=== PATIENT | female | born 1960 | race Caucasian/White ===

== ENCOUNTER 2020-08-22 12:54 | Inpatient (IN) | payer OTHER, SELFPAY ==
[2020-08-22] MEDS ORDERED: Acetaminophen 325 MG TAB PO PRN (14:13)
[2020-08-22] MEDS ORDERED: Ondansetron ODT 4 MG TAB PO PRN (14:13)
[2020-08-22] MEDS ORDERED: Senokot S 8.6-50 MG TAB PO PRN (14:13)
[2020-08-22] MEDS ORDERED: Diltiazem 125 MG/25 ML ONE (14:22)
[2020-08-22 14:29] LABS: Actual Bicarbonate (HCO3a) 24.7 mEq/L (22-28); Analyzer IN Cardio ER; Base Excess (BEa) -1.6 mEq/L (-2.0 to +3.0); CO2 Tension 48.3 mmHg (35.0-45.0); Calcium, Ionized (arterial) 1.18 mmol/L (1.12-1.30); Carboxyhemoglobin (COHb) 2.6 gm% (0.0-3.0); pH, Arterial 7.33 (7.35-7.45)
[2020-08-22 14:30] LABS: ALV-art Gradient 82.065 mmHg (0-20); O2 Tension (PaO2), arterial 57.2 mmHg (> 80.0); Puncture Site LRA
[2020-08-22] MEDS ORDERED: Diltiazem HCl 125 MG, Admixture Fee 1 EACH in Sodium Chloride 0.9% 100 ML IVPB SCH (14:30)
[2020-08-22 14:35] LABS: Troponin I 0.173 ng/mL (< 0.028)
[2020-08-22] MEDS ORDERED: Dextrose 5% in Water 1,000 ML IV PRN (14:35)
[2020-08-22] MEDS ORDERED: Dextrose 50% Abboject 50 ML SYRINGE SLOW IVP PRN (14:35)
[2020-08-22 14:54] LABS: CKMB 1.6 ng/mL (0-6.6)
--- NOTE | 2020-08-22 15:08 | HP ---
CONSULTATIONS CALLED: Dr. Kenny, Cardiology. PRIMARY CARE PHYSICIAN: Dr. Whiteside. REASON FOR ADMISSION: UTI, sepsis, and atrial fibrillation. HISTORY OF PRESENT ILLNESS: This is a very pleasant 60-year-old morbidly obese female, who was transferred from [facility] Emergency Room today after she presented to the emergency room with concerns of UTI along with weakness and recurrent falls. According to the patient, the patient's symptomatology started 1 week back where she went to her primary care physician, who prescribed her some antibiotics which she does not remember the name, but unfortunately, she has been feeling more weak and almost fell twice at which point of time, her advised her to go to the emergency room, so presented to the ER today, and according to the patient, she had a temperature of 101.8 degrees Fahrenheit at home. Initial evaluation in the emergency room at [facility] showed evidence of UTI along with elevated heart rate eventually confirming atrial fibrillation with a rapid ventricular rate, which is new onset. The patient there in the emergency room was treated with IV Cardizem drip, initially with digoxin, but unfortunately her rate did not control, so eventually, the patient was sent over to [facility] for tertiary level of care and Cardiology review along with treatment for UTI. Basing on the records from [facility] ER, the patient was taking Bactrim and she only took one dose of the same. At my evaluation at bedside in the emergency room, the patient feels lethargic and weak, is moderately short of breath though she is on oxygen at 2 L, currently increased to 3 L and has a history of COPD for which the patient uses oxygen at home. In the emergency room, Dr. Arnold, the ER physician advised for a CTA to rule out any evidence of pulmonary embolism. COVID-19 testing evaluation was negative. No other complaints of chest pain, abdominal pain, nausea, vomiting, diaphoresis, blurring of vision, tingling, numbness, burning micturition, constipation, claudication, anxiety, depression, hematuria, hematochezia, cough, expectoration, syncope, seizures, PND, or orthopnea has been noted. PAST MEDICAL HISTORY: 1. Congestive heart failure with unknown ejection fraction. 2. Diabetes mellitus type 2. 3. History of pancreatic malignancy treated with chemotherapy, radiation therapy for more than 5 years. 4. COPD. SURGICAL HISTORY: Includes cholecystectomy, hernia repair, and hysterectomy. PSYCHIATRIC HISTORY: Includes history of depression. SOCIAL HISTORY: The patient denies tobacco, alcohol, or recreational drug abuse. MEDICATIONS: Medication update is unavailable at this point of time and awaiting official review. REVIEW OF SYSTEMS: Except as documented, all systems reviewed and negative. PHYSICAL EXAMINATION: GENERAL: This is a 60-year-old female, who is morbidly obese, lying in her hospital bed, feeling weak and lethargic. VITAL SIGNS: Has a blood pressure of 138/60 mmHg. Respiratory rate of 18 per minute, saturation of 92% on 3 L of oxygen. Has an airway, which is clear. HEENT: Atraumatic, normocephalic. NECK: Supple. No bruit. No lymphadenopathy. No thyromegaly. CVS: S1, S2. Irregular in nature with rapid ventricular rate. CHEST: Bilateral air entry present, but decreased with basal creps noted on auscultation. ABDOMEN: Soft, nontender. Bowel sounds are present. No organomegaly. EXTREMITIES: No cyanosis. 1+ edema noted. No icterus. No pallor. NEUROLOGIC: The patient is alert, oriented x3. No focal, motor, or sensory deficits noted. HEMATOLOGIC: No ecchymosis or petechiae. PSYCHIATRIC: History of depression. No suicidal ideations noted. SKIN: Intact, but slightly dry. DIAGNOSTIC STUDIES: WBC is 15.2, hemoglobin 13.5, hematocrit 44.1, platelets are 181. Sodium 135, potassium 4.0, chloride 96, carbon dioxide 26, BUN 30, creatinine 1.20, GFR is 46. Lactic acid is 1.7. AST 21, ALT 32, alkaline phosphatase is 108. Urinalysis has been reviewed. Wbc greater than 50, urine bacteria 3+. Influenza screen negative for A and B and COVID-19 testing negative. Currently pending tests are CT angiogram. Also, we will order an echocardiogram review. ASSESSMENT: 1. Suspected sepsis with atrial fibrillation and complicated urinary tract infection. We will start and continue the patient on Maxipime per protocol. We will follow urine cultures as well as blood culture and sensitivity evaluations as done at [facility] in [facility]. 2. Atrial fibrillation with rapid ventricular rate, which is new onset. At this point of time, Cardiology Services has been consulted and unfortunately, the patient did not respond to digoxin as well as Cardizem, so has been started on IV amiodarone for which the patient is being transitioned to CCU. We will also do an echocardiogram evaluation for further review. 3. Acute hypoxemic COPD exacerbation, which is moderate in nature, and I have started the patient on Solu-Medrol and DuoNeb nebulizations. 4. History of suspected congestive heart failure for which an echocardiogram will be done to review the same. 5. History of pancreatic cancer with chemoradiation therapy. Not sure what her followup review is with her primary oncologist. 6. Benign essential hypertension. 7. Diabetes mellitus type 2. I will start the patient on sliding scale insulin protocol with hypoglycemia precautions. 8. Morbid obesity. PLAN: Discussed in detail of the diagnosis, treatment, and followup with the patient. I expect the patient to be admitted to the hospitalist services for more than 2 midnights. We will start the patient on IV Maxipime for antibiotic coverage. Follow all cultures from [facility] diagnostic evaluations. We will do a CT angiogram to rule out pulmonary embolism; also, do an echocardiogram evaluation at this point of time. We will hold the patient's metformin because of contrast use for the next 48 hours and start the patient on sliding scale insulin protocol with hypoglycemia precautions. Advanced directives, full code. The patient's MPOA is her , Mr. Saravanan Dunbar, who can be reached at [phone]. The patient's condition is guarded. We will be admitting the patient to CCU at this point of time, and we will follow official consultation evaluation by Dr. Kenny, Cardiology. Job ID: [id number]
--- NOTE | 2020-08-22 15:12 | CT ---
EXAM: CT ANGIOGRAM CHEST WITH 3D RENDERIN08/22/20 HISTORY: Dyspnea. FINDINGS: There are fairly extensive bilateral interstitial, alveolar, and ground glass opacity changes through out both lungs which have an appearance that is certainly consistent with that of COVID pneumonia. Th ere is a somewhat mosaic appearance to the lungs as well which is nonspecific. There are scattered me diastinal and bilateral hilar lymph nodes up to 1.1 cm short axis in the right paratracheal region,1. 2 cm short axis in the left paratracheal region and smaller bilateral hilar nodes. Minimal lingular a telectasis. Bilateral pleural thickening and some pleural based chronic appearing changes. Small hiat al hernia. Evidence for probable hepatomegaly. Borderline sized spleen. No CT evidence for pulmonary embolism. IMPRESSION: No convincing evidence for acute cardiopulmonary embolism. Fairly extensive bilateral parenchymal changes which certainly could be consistent with bilateral COV ID pneumonia. Minimal mediastinal and hilar adenopathy. Other findings as above. POS: RRE
[2020-08-22 16:43] VITALS: BMI 37.8
[2020-08-22] MEDS ORDERED: Sodium Chloride 0.9% 1,000 ML IV SCH (18:00)
[2020-08-22 18:19] LABS: Troponin I 0.112 ng/mL (< 0.028)
[2020-08-22] MEDS: Metoprolol Tartrate 50 MG TAB PO SCH (19:48)
[2020-08-22] MEDS: Aspirin 81 mg Enteric Coated Tablet PO SCH (19:48)
[2020-08-22] MEDS: Famotidine 20 MG TAB PO SCH (19:48)
[2020-08-22] MEDS: HumaLOG 300 UNITS/3 ML VIAL SC PRN (20:00)
[2020-08-22] MEDS ORDERED: Digoxin 0.5 MG/2 ML AMP SLOW IVP SCH (20:15)
[2020-08-22] MEDS ORDERED: Metoprolol Tartrate 5 MG/5 ML VIAL IVP PRN ×2 (20:40→20:43)
[2020-08-22] MEDS: Enoxaparin Sodium 100 MG/ML SYRINGE SC SCH (20:57)
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
[2020-08-22] MEDS: Cefepime 1 GM in Sodium Chloride 0.9% 100 ML IVPB SCH (22:03)
[2020-08-22] MEDS: Amiodarone 450 MG, Admixture Fee 1 EACH in Dextrose 5% in Water 250 ML IVPB SCH (22:03)
[2020-08-22] MEDS: methylPREDNISolone Sod Succ 40 MG VIAL IVP SCH (23:30)
[2020-08-23 04:34] LABS: ALT (SGPT) 31 U/L (8-55); AST (SGOT) 28 U/L (5-34); Albumin 3.3 g/dL (3.4-4.8); Alkaline Phosphatase 110 U/L (40-110); Anion Gap 15 mmol/L (10-20); BUN (Urea Nitrogen) 25 mg/dL (9.8-20.1); Bilirubin, Total 0.4 mg/dL (0.2-1.2); Calc. Creatinine Clearance 124 mL/min (70-130); Calcium 8.9 mg/dL (7.8-10.44); Carbon Dioxide 24 mmol/L (23-31); Chloride 101 mmol/L (98-107); Globulin 3.5 g/dL (2.4-3.5); Glucose 236 mg/dL (80-115); Potassium 4.5 mmol/L (3.5-5.1); Protein, Total 6.8 g/dL (5.8-8.1); Sodium 135 mmol/L (136-145)
[2020-08-23] MEDS: Cefepime 1 GM in Sodium Chloride 0.9% 100 ML IVPB SCH ×4 (05:37→23:49)
[2020-08-23] MEDS: methylPREDNISolone Sod Succ 40 MG VIAL IVP SCH ×5 (05:38→23:50)
[2020-08-23 06:06] LABS: Band 19 % (5-11); Hemoglobin 12.5 g/dL (12.0-16.0); Lymphocytes 13 % (21-51); MDiff Complete? YES; Mean Corpuscular HGB CONC 31.7 g/dL (32.0-36.0); Mean Corpuscular Hemoglobin 29.8 pg (27.0-31.0); Mean Corpuscular Volume 93.8 fL (78.0-98.0); Mean Platelet Volume 10.5 fL (7.4-10.4); Monocytes 3 % (0-10); Neutrophil 65 % (42-75); Platelet Count 162 thou/uL (130-400); White Blood Cell (WBC) Count 11.3 thou/uL (4.8-10.8)
[2020-08-23] MEDS ORDERED: Enoxaparin Sodium 40 MG/0.4 ML SYRINGE SC SCH (09:00)
[2020-08-23] MEDS: Metoprolol Tartrate 50 MG TAB PO SCH ×2 (09:51→23:46)
[2020-08-23] MEDS: Digoxin 0.25 MG TAB PO SCH (09:51)
[2020-08-23] MEDS: Famotidine 20 MG TAB PO SCH ×2 (09:51→23:46)
[2020-08-23] MEDS: Enoxaparin Sodium 100 MG/ML SYRINGE SC SCH ×2 (09:51→23:46)
[2020-08-23] MEDS: Amiodarone 450 MG, Admixture Fee 1 EACH in Dextrose 5% in Water 250 ML IVPB SCH (09:54)
--- NOTE | 2020-08-23 10:01 | PDOC.CPN ---
- Subjective Date: 08/23/20 Time: 10:00 - Review of Systems General: denies: fever/chills, weight/appetite/sleep changes, night sweats, fatigue Respiratory: denies: cough, congestion, shortness of breath, exercise intolerance Cardiovascular: denies: chest pain, palpitation, edema, paroxysmal nocturnal dyspnea, orthopnea Gastrointestinal: denies: nausea, vomiting, diarrhea, constipation, abd pain, GI bleeding Musculoskeletal: denies: pain, tenderness, stiffness, swelling, arthriti s/arthralgias Neurological: denies: numbness, syncope, seizure, weakness - Objective Allergies/Adverse Reactions: Allergies Allergy/AdvReac Type Severity Reaction Status Date / Time No Known Drug Allergies Allergy Verified 09/29/19 04:57 Visit Medications: Current Medications Acetaminophen (Acetaminophen 325 Mg Tab) 650 mg PO Q4H PRN PRN Reason: Headache/Fever/Mild Pain (1-3) Albuterol/Ipratropium (Ipratropium/Albuterol Sulfate 3 Ml Neb) 3 ml EZPAP Q6HR- RT PRN PRN Reason: SOB &/or Wheezing Aspirin (Aspirin 81 Mg Enteric Coated Tablet) 81 mg PO QPM [facility] Last Admin: 08/22/20 19:48 Dose: 81 mg Documented by: Dextrose/Water (Dextrose 50% Abboject 50 Ml Syringe) 25 gm SLOW IVP PRN PRN PRN Reason: Hypoglycemia Digoxin (Digoxin 0.25 Mg Tab) 0.25 mg PO DAILY [facility] Last Admin: 08/23/20 09:51 Dose: 0.25 mg Documented by: Enoxaparin Sodium (Enoxaparin Sodium 100 Mg/Ml Syringe) 100 mg SC 0900,2100 [facility] Last Admin: 08/23/20 09:51 Dose: 100 mg Documented by: Famotidine (Famotidine 20 Mg Tab) 20 mg PO BID [facility] Last Admin: 08/23/20 09:51 Dose: 20 mg Documented by: Glucagon (Glucagon 1 Mg/Ml Vial) 1 mg IM PRN PRN PRN Reason: Hypoglycemia Amiodarone HCl 450 mg/Miscellaneous Medication 1 each/ Dextrose/Water 259 mls @ 0 mls/hr IVPB INF [facility]; Protocol Last Admin: 08/23/20 09:54 Dose: 259 mls Documented by: Diltiazem HCl 125 mg/Miscellaneous Medication 1 each/ Sodium Chloride 125 mls @ 0 mls/hr IVPB INF [facility]; Protocol Last Admin: 08/23/20 01:23 Dose: 125 mls Documented by: Dextrose/Water (D5w) 1,000 mls @ 0 mls/hr IV .Q0M PRN PRN Reason: Hypoglycemia Cefepime HCl 1 gm/ Sodium (Chloride) 100 mls @ 200 mls/hr IVPB Q8HR [facility] Last Admin: 08/23/20 05:37 Dose: 100 mls Documented by: Insulin Human Lispro (Humalog 300 Units/3 Ml Vial) 0 units SC .MILD SLIDING SCALE PRN PRN Reason: Mild Correctional Scale Last Admin: 08/22/20 20:00 Dose: 2 unit Documented by: Methylprednisolone Sodium Succinate (Methylprednisolone Sod Succ 40 Mg Vial) 40 mg IVP Q6HR [facility] Last Admin: 08/23/20 07:42 Dose: Not Given Documented by: Metoprolol Tartrate (Metoprolol Tartrate 50 Mg Tab) 50 mg PO BID [facility] Last Admin: 08/23/20 09:51 Dose: 50 mg Documented by: Ondansetron HCl (Ondansetron Odt 4 Mg Tab) 4 mg PO Q6H PRN PRN Reason: Nausea/Vomiting Senna/Docusate Sodium (Senokot S 8.6-50 Mg Tab) 2 tab PO BIDPRN PRN PRN Reason: Constipation Sodium Chloride (Flush - Normal Saline 10 Ml Syringe) 10 ml IVF Q12HR [facility] Last Admin: 08/23/20 09:52 Dose: 10 ml Documented by: Sodium Chloride (Flush - Normal Saline 10 Ml Syringe) 10 ml IVF PRN PRN PRN Reason: Saline Flush Vital Signs & Weight: Vital Signs Temp Pulse Pulse Ox 08/23/20 09:51 145 H 08/23/20 08:00 98.5 F 91 L 08/23/20 07:56 92 L 08/23/20 04:00 98.7 F 08/23/20 00:00 98.7 F Admit Weight 233 lb 7.512 oz Weight 241 lb 6.499 oz - Quality Measures Condition: Atrial Fibrillation/Flutter (hx or current) - Physical Exam HEENT: normocephaly Neck: supple neck Cardiac: regular rate and rhythm Lungs: scattered rhonchi Neuro: cranial nerve 2-12 intact, grossly intact Abdomen: unremarkable Extremities: no cyanosis, no clubbing, no edema Skin: clear Musculoskeletal: normal range of motion - Labs Result Diagrams: 08/23/20 03:35 08/23/20 03:35 Troponin/CKMB CK-MB (CK-2) 1.6 ng/mL (0-6.6) 08/22/20 13:56 Troponin I 0.112 ng/mL (< 0.028) H 08/22/20 17:14 - Telemetry Sinus rhythms and dysrhythmias: sinus rhythm - Assessment/Plan Assessment/Plan: 1. Atrial fib./flutter: converted to NSR with amiodarone,dig.,diltiazem and betablockers. Continue amio, dig and betablockers if tolerated. She will likely need an EP consult when the UTI is resolved. Check echo and consider stress test in future. She did not have ekg changes with HR > 140bpm. 2. DM: per primary service. 3. UTI: on antibiotics.
--- NOTE | 2020-08-23 12:38 | PDOC.HOSPP ---
- Subjective Encounter Date: 08/23/20 Subjective: Patient is alert and awake. She is having productive cough. Her, she appears comfortable answering to questions appropriately - Objective Vital Signs & Weight: Vital Signs (12 hours) Temp Pulse Pulse Ox 08/23/20 12:00 98.8 F 08/23/20 09:51 145 H 08/23/20 08:00 98.5 F 91 L 08/23/20 07:56 92 L 08/23/20 04:00 98.7 F Weight Admit Weight 233 lb 7.512 oz Weight 241 lb 6.499 oz Most Recent Monitor Data Heart Rate from ECG 69 NIBP 115/54 NIBP BP-Mean 74 Respiration from ECG 18 SpO2 93 I&O: 08/22/20 08/23/20 08/24/20 06:59 06:59 06:59 Intake Total 1105.6 Output Total 1150 150 Balance -44.4 -150 Result Diagrams: 08/23/20 03:35 08/23/20 03:35 Additional Labs: Accuchecks 08/23/20 08/22/20 08/22/20 06:51 19:51 17:13 POC Glucose 180 H 192 H 157 H Hospitalist ROS - Medication Medications: Active Medications Generic Name Dose Route Start Last Admin Trade Name Freq PRN Reason Stop Dose Admin Aspirin 81 mg 08/22/20 21:00 08/22/20 19:48 Aspirin 81 Mg Enteric Coated Tablet PO 81 mg QPM RUPESH Administration Digoxin 0.25 mg 08/23/20 09:00 08/23/20 09:51 Digoxin 0.25 Mg Tab PO 0.25 mg DAILY RUPESH Administration Enoxaparin Sodium 100 mg 08/22/20 21:00 08/23/20 09:51 Enoxaparin Sodium 100 Mg/Ml Syringe SC 100 mg 0900,2100 RUPESH Administration Famotidine 20 mg 08/22/20 21:00 08/23/20 09:51 Famotidine 20 Mg Tab PO 20 mg BID RUPESH Administration Amiodarone HCl 450 mg/ 259 mls @ 0 mls/hr 08/22/20 14:30 08/23/20 09:54 Miscellaneous Medication 1 IVPB 259 mls each/ Dextrose/Water INF RUPESH Administration Protocol As Directed Diltiazem HCl 125 mg/ 125 mls @ 0 mls/hr 08/22/20 14:30 08/23/20 01:23 Miscellaneous Medication 1 IVPB 125 mls each/ Sodium Chloride INF RUPESH Administration Protocol As Directed Cefepime HCl 1 gm/ Sodium 100 mls @ 200 mls/hr 08/23/20 06:00 08/23/20 05:37 Chloride IVPB 100 mls Q8HR RUPESH Administration Insulin Human Lispro 0 units 08/22/20 14:35 08/22/20 20:00 Humalog 300 Units/3 Ml Vial SC 2 unit .MILD SLIDING SCALE PRN Administration Mild Correctional Scale Methylprednisolone Sodium Succinate 40 mg 08/22/20 18:00 08/23/20 07:42 Methylprednisolone Sod Succ 40 Mg Vial IVP Not Given Q6HR RUPESH Metoprolol Tartrate 50 mg 08/22/20 21:00 08/23/20 09:51 Metoprolol Tartrate 50 Mg Tab PO 50 mg BID RUPESH Administration Sodium Chloride 10 ml 08/22/20 21:00 08/23/20 09:52 Flush - Normal Saline 10 Ml Syringe IVF 10 ml Q12HR RUPESH Administration Hospitalist Exam Vitals: Vital Signs (12 hours) Temp Pulse Pulse Ox 08/23/20 12:00 98.8 F 08/23/20 09:51 145 H 08/23/20 08:00 98.5 F 91 L 08/23/20 07:56 92 L 08/23/20 04:00 98.7 F Weight Admit Weight 233 lb 7.512 oz Weight 241 lb 6.499 oz Most Recent Monitor Data Heart Rate from ECG 69 NIBP 115/54 NIBP BP-Mean 74 Respiration from ECG 18 SpO2 93 General Appearance: NAD Eye: anicteric sclera ENT: normocephalic atraumatic Neck: supple Heart: RRR, no murmur, no gallops Respiratory: no wheezes, rhonchi Gastrointestinal: soft, non-tender, non-distended Extremities: no edema Psychiatric: normal affect, normal behavior Hosp A/P (1) Pneumonia Code(s): J18.9 - PNEUMONIA, UNSPECIFIED ORGANISM Status: Acute Qualifiers: Laterality: left Lung location: upper lobe of lung Plan: As per impression (2) Sepsis Code(s): A41.9 - SEPSIS, UNSPECIFIED ORGANISM Status: Acute Plan: As per impression (3) UTI (urinary tract infection) Status: Acute Qualifiers: Urinary tract infection type: acute cystitis (4) Acute respiratory failure with hypoxia Code(s): J96.01 - ACUTE RESPIRATORY FAILURE WITH HYPOXIA Status: Chronic Plan: As per impression (5) COPD (chronic obstructive pulmonary disease) Status: Chronic Plan: As per impression (6) Chronic respiratory failure Code(s): J96.10 - CHRONIC RESPIRATORY FAILURE, UNSP W HYPOXIA OR HYPERCAPNIA Status: Chronic Plan: As per impression - Plan Assessment Patient is a 60-year-old female with a past medical history of obesity, chronic respiratory failure, COPD on 2 L at home, pancreatic cancer status post Whipple procedure more than 5 years ago and chemotherapy. She believes to be in remission since. She presented to an outside hospital with persistent symptoms of UTI not relieved with prescribed Bactrim. She was also found to have a rapid atrial fibrillation that failed management with digoxin and Cardizem, and was transferred to this hospital for higher level of care. Pierce arreguin is currently in the ICU for management of sepsis secondary to UTI along with rapid A. fib. Rate control achieved with amiodarone infusion. Sepsis UTI Rapid atrial fibrillation COPD, possible acute exacerbation Acute on chronic chronic respiratory failure Type 2 diabetes mellitus Hypertension Obesity history of pancreatic cancer Plan: Continue cefepime. Urine culture from outside hospital showing gram-negative rods Continue amiodarone infusion. Cardiology recommends continuing oral digoxin, amiodarone and beta-gege if blood pressure tolerates Follow-up 2D echo Electrophysiology also consulted as per cardiology recommendation Continue full dose Lovenox for CVA prevention. High risk for venous thromboembolism given history of malignancy Optimize respiratory status with pulmonary toilet: Chest physiotherapy and Mucomyst/albuterol nebulizer Plan to discharge with LABA/LAMA combination DVT prophylaxis. GI prophylaxis as patient is both on Lovenox and Solu-Medrol Continue insulin sliding scale Will check for A1c and assess if patient will need long-acting insulin
[2020-08-23 13:08] LABS: Hemoglobin A1c 6.5 % (4.0-6.0)
[2020-08-23] MEDS: Acetylcysteine 20% 200 MG/ML 30 ML VIAL INH SCH ×2 (13:58→19:19)
[2020-08-23 14:02] LABS: Bilirubin Negative (Negative); Blood, Urine Negative (Negative); Clarity Clear (Clear); Glucose, Urine (Dipstick) 100 mg/dL (Negative); Ketone, Urine Negative (Negative); Leukocyte 500 Leu/uL (Negative); Nitrite 1+ (Negative); Protein, Urine (Dipstick) 50 mg/dL (Neg-Trace); Specific Gravity, Urine 1.022 (1.002-1.036); Squamous Epithelial 0-3 HPF (0-3); Urobilinogen Normal mg/dL (Less than 2)
[2020-08-23 14:08] LABS: Bacteria/HPF Rare-Few HPF (None Seen)
[2020-08-23 14:09] LABS: Urine Culture Reflex Yes Yes
[2020-08-23] MEDS: HumaLOG 300 UNITS/3 ML VIAL SC PRN ×2 (14:11→18:18)
[2020-08-23] MEDS: Aspirin 81 mg Enteric Coated Tablet PO SCH (23:46)
[2020-08-24] MEDS: Acetylcysteine 20% 200 MG/ML 30 ML VIAL INH SCH ×4 (01:17→19:12)
[2020-08-24] MEDS ORDERED: methylPREDNISolone Sod Succ 40 MG VIAL ONE ×2 (04:58→14:17)
[2020-08-24] MEDS ORDERED: Metoprolol Tartrate 50 MG TAB ONE (08:10)
[2020-08-24] MEDS ORDERED: Enoxaparin Sodium 100 MG/ML SYRINGE ONE (08:11)
[2020-08-24] MEDS ORDERED: Digoxin 0.25 MG TAB ONE (08:11)
[2020-08-24] MEDS: Digoxin 0.25 MG TAB PO SCH (08:52)
[2020-08-24] MEDS: Metoprolol Tartrate 50 MG TAB PO SCH ×2 (08:52→21:03)
[2020-08-24] MEDS: Enoxaparin Sodium 100 MG/ML SYRINGE SC SCH ×2 (08:52→21:03)
[2020-08-24] MEDS ORDERED: Amiodarone 200 MG TAB ONE ×2 (10:38→14:17)
[2020-08-24] MEDS ORDERED: Amiodarone 200 MG TAB PO SCH (10:45)
--- NOTE | 2020-08-24 12:43 | PDOC.HOSPP ---
- Subjective Encounter Date: 08/24/20 Subjective: No acute events overnight. Patient is breathing better after mucolytic's nebulizer. - Objective Vital Signs & Weight: Weight Admit Weight 233 lb 7.512 oz Weight 241 lb 6.499 oz Most Recent Monitor Data Heart Rate from ECG 65 NIBP 114/61 NIBP BP-Mean 78 Respiration from ECG 22 SpO2 92 I&O: 08/23/20 08/24/20 08/25/20 06:59 06:59 06:59 Intake Total 1105.6 Output Total 1150 1050 Balance -44.4 -1050 Result Diagrams: 08/23/20 03:35 08/23/20 03:35 Additional Labs: Accuchecks 08/23/20 08/23/20 20:23 16:58 POC Glucose 266 H 217 H Hospitalist ROS - Medication Medications: Active Medications Generic Name Dose Route Start Last Admin Trade Name Freq PRN Reason Stop Dose Admin Acetylcysteine 600 mg 08/23/20 13:00 08/24/20 07:05 Acetylcysteine 20% 200 Mg/Ml 30 Ml Vial INH 600 mg [id number] RUPESH Administration Aspirin 81 mg 08/22/20 21:00 08/23/20 23:46 Aspirin 81 Mg Enteric Coated Tablet PO 81 mg QPM RUPESH Administration Digoxin 0.25 mg 08/23/20 09:00 08/23/20 09:51 Digoxin 0.25 Mg Tab PO 0.25 mg DAILY RUPESH Administration Enoxaparin Sodium 100 mg 08/22/20 21:00 08/23/20 23:46 Enoxaparin Sodium 100 Mg/Ml Syringe SC 100 mg 0900,2100 RUPESH Administration Famotidine 20 mg 08/22/20 21:00 08/23/20 23:46 Famotidine 20 Mg Tab PO 20 mg BID RUPESH Administration Amiodarone HCl 450 mg/ 259 mls @ 0 mls/hr 08/22/20 14:30 08/23/20 09:54 Miscellaneous Medication 1 IVPB 259 mls each/ Dextrose/Water INF RUPESH Administration Protocol As Directed Diltiazem HCl 125 mg/ 125 mls @ 0 mls/hr 08/22/20 14:30 08/23/20 01:23 Miscellaneous Medication 1 IVPB 125 mls each/ Sodium Chloride INF RUPESH Administration Protocol As Directed Cefepime HCl 1 gm/ Sodium 100 mls @ 200 mls/hr 08/23/20 06:00 08/23/20 23:49 Chloride IVPB 100 mls Q8HR RUPESH Administration Insulin Human Lispro 0 units 08/22/20 14:35 08/23/20 18:18 Humalog 300 Units/3 Ml Vial SC 3 unit .MILD SLIDING SCALE PRN Administration Mild Correctional Scale Methylprednisolone Sodium Succinate 40 mg 08/22/20 18:00 08/23/20 23:50 Methylprednisolone Sod Succ 40 Mg Vial IVP 40 mg Q6HR RUPESH Administration Metoprolol Tartrate 50 mg 08/22/20 21:00 08/23/20 23:46 Metoprolol Tartrate 50 Mg Tab PO 50 mg BID RUPESH Administration Sodium Chloride 10 ml 08/22/20 21:00 08/23/20 23:49 Flush - Normal Saline 10 Ml Syringe IVF 10 ml Q12HR RUPESH Administration Hospitalist Exam Vitals: Weight Admit Weight 233 lb 7.512 oz Weight 241 lb 6.499 oz Most Recent Monitor Data Heart Rate from ECG 65 NIBP 114/61 NIBP BP-Mean 78 Respiration from ECG 22 SpO2 92 General - other findings: Slightly deconditioned Eye: anicteric sclera ENT: normocephalic atraumatic Heart: RRR, no murmur, no gallops, no rubs Respiratory: CTAB, no wheezes, no rales, no ronchi Extremities: no edema Neurological: cranial nerve grossly intact Psychiatric: normal affect, normal behavior Hosp A/P (1) Pneumonia Code(s): J18.9 - PNEUMONIA, UNSPECIFIED ORGANISM Status: Acute Qualifiers: Laterality: left Lung location: upper lobe of lung (2) Sepsis Code(s): A41.9 - SEPSIS, UNSPECIFIED ORGANISM Status: Acute (3) UTI (urinary tract infection) Status: Acute Qualifiers: Urinary tract infection type: acute cystitis (4) Acute respiratory failure with hypoxia Code(s): J96.01 - ACUTE RESPIRATORY FAILURE WITH HYPOXIA Status: Chronic (5) COPD (chronic obstructive pulmonary disease) Status: Chronic (6) Chronic respiratory failure Code(s): J96.10 - CHRONIC RESPIRATORY FAILURE, UNSP W HYPOXIA OR HYPERCAPNIA Status: Chronic - Plan Assessment Patient is a 60-year-old female with a past medical history of obesity , chronic respiratory failure, COPD on 2 L at home, pancreatic cancer status post Whipple procedure more than 5 years ago, and chemotherapy. She believes to be in remission since. She presented to an outside hospital with persistent symptoms of UTI not relieved with prescribed Bactrim. She was also found to have a rapid atrial fibrillation that failed management with digoxin and Cardizem, and was transferred to this hospital for higher level of care. She required ICU stay upon arrival for amiodarone infusion which restored her heart rate. Her 2D echo shows a preserved EF. No significant valvular abnormalities. She is also on cefepime for sepsis secondary to UTI. Sepsis UTI Rapid atrial fibrillation COPD, possible acute exacerbation Acute on chronic chronic respiratory failure Type 2 diabetes mellitus -A1c of 6.5 Hyperglycemia most likely secondary to dextrose fluid and an amiodarone infusion Hypertension Obesity history of pancreatic cancer Plan: Continue cefepime. Urine culture from outside hospital showing gram-negative rods. Final sensitivity panel pending Amiodarone infusion switched to oral. Cardiology recommends continuing oral digoxin, amiodarone and beta-gege if blood pressure tolerates Electrophysiology also consulted as per cardiology recommendation Continue full dose Lovenox for CVA prevention. High risk for venous thromboembolism given history of malignancy Optimize respiratory status with pulmonary toilet: Chest physiotherapy and Mucomyst/albuterol nebulizer as needed Will discharge with LABA/LAMA combination GI prophylaxis as patient is both on Lovenox and Solu-Medrol Continue insulin sliding scale
[2020-08-24] MEDS ORDERED: Cefepime 1 GM VIAL ONE (14:16)
[2020-08-24] MEDS: Amiodarone 200 MG TAB PO SCH ×2 (14:30→21:03)
[2020-08-24] MEDS: Cefepime 1 GM in Sodium Chloride 0.9% 100 ML IVPB SCH ×3 (14:30→21:00)
[2020-08-24] MEDS: methylPREDNISolone Sod Succ 40 MG VIAL IVP SCH ×3 (14:30→17:58)
[2020-08-24] MEDS: Famotidine 20 MG TAB PO SCH ×2 (15:45→21:03)
[2020-08-24 16:33] LABS: #Basophils 0.1 thou/uL (0.0-0.2); #Lymphocytes 1.3 thou/uL (1.20-3.40); #Monocytes 0.6 thou/uL (0.11-0.59); #Neutrophils 9.4 thou/uL (1.40-6.50); %Basophils 1.2 % (0.0-1.0); %Eosinophils 0.2 % (0.0-10.0); %Lymphocytes 11.6 % (21.0-51.0); %Monocytes 4.9 % (0.0-10.0); %Neutrophils 82.2 % (42.0-75.0); Mean Corpuscular HGB CONC 32.9 g/dL (32.0-36.0); Mean Corpuscular Hemoglobin 30.6 pg (27.0-31.0); Mean Platelet Volume 10.7 fL (7.4-10.4); Platelet Count 169 thou/uL (130-400); RBC Distribution Width 14.1 % (11.5-14.5); Red Blood Cell (RBC) Count 4.23 mill/uL (4.20-5.40); White Blood Cell (WBC) Count 11.4 thou/uL (4.8-10.8)
[2020-08-24 17:56] LABS: Hemoglobin 13.3 g/dL (12.0-16.0); Platelet Count 242 thou/uL (130-400)
[2020-08-24] MEDS: HumaLOG 300 UNITS/3 ML VIAL SC PRN ×2 (17:58→21:00)
[2020-08-24] MEDS: Aspirin 81 mg Enteric Coated Tablet PO SCH (21:03)
[2020-08-25] MEDS: methylPREDNISolone Sod Succ 40 MG VIAL IVP SCH ×3 (00:42→12:19)
[2020-08-25] MEDS: Acetylcysteine 20% 200 MG/ML 30 ML VIAL INH SCH ×3 (01:03→15:19)
[2020-08-25] MEDS: HumaLOG 300 UNITS/3 ML VIAL SC PRN ×2 (05:29→12:19)
[2020-08-25] MEDS: Cefepime 1 GM in Sodium Chloride 0.9% 100 ML IVPB SCH ×2 (05:29→15:12)
[2020-08-25] MEDS: Digoxin 0.25 MG TAB PO SCH (09:47)
[2020-08-25] MEDS: Metoprolol Tartrate 50 MG TAB PO SCH (09:47)
[2020-08-25] MEDS: Amiodarone 200 MG TAB PO SCH ×2 (09:47→15:12)
[2020-08-25] MEDS: Famotidine 20 MG TAB PO SCH (09:47)
[2020-08-25] MEDS: Enoxaparin Sodium 100 MG/ML SYRINGE SC SCH (09:48)
--- NOTE | 2020-08-25 13:47 | PDOC.DS.DS ---
Provider Date of Admission: 08/22/20 13:42 Admitting Provider: Tico Pittman MD Consultations: Cardiology Primary Care Physician: Josh Whiteside MD Course Hospital Course: 60-year-old female with a past medical history of chronic respiratory failure, COPD on 2 L of oxygen at home. She presented to the hospital with symptoms of UTI that failed outpatient treatment with Bactrim. Urine culture yielded klebsiella pneumonia only susceptible to cephalosporins and quinolones, and Carbapenems. She has done well on cefepime. She was found to have rapid atrial fibrillation upon admission. Did not respond to Cardizem and was transferred to [facility] for higher level of care. Cardiology was involved and optimize her rate control regimen. She is currently on amiodarone digoxin and metoprolol. She was also placed on Lovenox for CVA prevention. Patient has done well throughout this hospitalization except for requirement for supplemental oxygen. Her CT chest showed extensive bilateral pneumonia. She is medically cleared and ready to be discharged today. Cardiology is recommending evaluation by electrophysiology after her UTI has resolved. Resuscitation Status: 08/22/20 14:13 Resuscitation Status Routine Resuscitation Status: FULL: Full Resuscitation Lab Results: 08/24/20 17:14 08/24/20 17:14 Abnormal Lab Results - Last 48 hrs 08/23/20 13:28: Urine Protein 50 A, Urine Glucose (UA) 100 A, Urine Nitrite 1+ A, Ur Leukocyte Esterase 500 A, Urine RBC 4-6 A, Urine WBC 11-20 A, Urine Culture Reflexed Yes A 08/24/20 03:25: WBC 11.4 H, MPV 10.7 H, Neutrophils % 82.2 H, Lymphocytes % 11.6 L, Basophils % 1.2 H, Neutrophils # 9.4 H, Monocytes # 0.6 H Microbiology - Entire Visit 08/23/20 14:10 Urine clean catch Urine Culture - Final NO GROWTH AT 48 HOURS Vitals: Vital Signs (12 hours) Temp Pulse Resp BP BP Pulse Ox 08/25/20 08:00 97.4 F L 66 17 120/58 L 96 08/25/20 04:00 98.1 F 59 L 16 142/67 H 98 Weight Admit Weight 233 lb 7.512 oz Weight 241 lb 6.499 oz Most Recent Monitor Data Heart Rate from ECG 65 NIBP 114/61 NIBP BP-Mean 78 Respiration from ECG 22 SpO2 92 Physical Exam: The patient was seen and examined on the day of discharge. General Appearance: NAD, awake alert Eye: anicteric sclera ENT: normocephalic atraumatic Neck: supple Respiratory: no wheezes, no ronchi Cardiovascular: RRR, no murmur Extremities: no edema Neurological: cranial nerve grossly intact PSYCH: normal affect, normal behavior Problem Assessment: Please refer to hospital course (1) Pneumonia Code(s): J18.9 - PNEUMONIA, UNSPECIFIED ORGANISM Status: Acute Qualifiers: Laterality: left Lung location: upper lobe of lung (2) Sepsis Code(s): A41.9 - SEPSIS, UNSPECIFIED ORGANISM Status: Acute (3) UTI (urinary tract infection) Status: Acute Qualifiers: Urinary tract infection type: acute cystitis (4) Acute respiratory failure with hypoxia Code(s): J96.01 - ACUTE RESPIRATORY FAILURE WITH HYPOXIA Status: Chronic (5) COPD (chronic obstructive pulmonary disease) Status: Chronic (6) Chronic respiratory failure Code(s): J96.10 - CHRONIC RESPIRATORY FAILURE, UNSP W HYPOXIA OR HYPERCAPNIA Status: Chronic Plan Prescriptions: Amiodarone [Cordarone] 200 mg PO BID #60 tab Apixaban [Eliquis] 5 mg PO BID #60 tab.ds.pk Levofloxacin 750 mg PO DAILY #3 tablet Metoprolol Tartrate [Lopressor] 50 mg PO BID #60 tab Famotidine [Pepcid] 20 mg PO BID #60 tab predniSONE 50 mg PO DAILY #4 tab Home Medications: Medication Instructions Recorded Confirmed Type Allopurinol 300 mg PO DAILY 06/01/15 08/24/20 History Aspirin [Aspirin EC] 81 mg PO QPM #0 tablet.dr 06/01/15 08/24/20 Rx DULoxetine [Cymbalta] 60 mg PO QPM #0 cap 06/01/15 08/24/20 Rx Furosemide [Lasix] 40 mg PO DAILY 06/01/15 08/24/20 History Montelukast Sodium [Singulair] 10 mg PO DAILY 06/01/15 08/24/20 History rOPINIRole HCl [Ropinirole HCl] 0.5 mg PO HS 06/01/15 08/24/20 History metFORMIN HCl [metFORMIN HCl ER] 1,000 mg PO BID 10/27/16 08/24/20 History Amiodarone [Cordarone] 200 mg PO BID #60 tab 08/25/20 Rx Apixaban [Eliquis] 5 mg PO BID #60 tab.ds.pk 08/25/20 Rx Famotidine [Pepcid] 20 mg PO BID #60 tab 08/25/20 Rx Levofloxacin 750 mg PO DAILY #3 tablet 08/25/20 Rx Metoprolol Tartrate [Lopressor] 50 mg PO BID #60 tab 08/25/20 Rx predniSONE 50 mg PO DAILY #4 tab 08/25/20 Rx Allergies: No Known Drug Allergies Allergy (Verified 09/29/19 04:57) Referrals: Josh Whiteside MD [Primary Care Provider] - Disposition: HOME HEALTH Quality CORE MEASURES:: N/A Did you prescribe antithrombotic therapy?: Yes
--- NOTE | 2020-08-25 14:05 | PDOC.CPN ---
- Subjective Date: 08/25/20 Time: 14:03 - Review of Systems General: denies: fever/chills, weight/appetite/sleep changes, night sweats, fatigue Respiratory: denies: cough, congestion, shortness of breath, exercise intolerance Gastrointestinal: denies: nausea, vomiting, diarrhea, constipation, abd pain, GI bleeding Musculoskeletal: denies: pain, tenderness, stiffness, swelling, arthritis/arthralgias Neurological: denies: numbness, syncope, seizure, weakness - Objective Allergies/Adverse Reactions: Allergies Allergy/AdvReac Type Severity Reaction Status Date / Time No Known Drug Allergies Allergy Verified 09/29/19 04:57 Visit Medications: Current Medications Acetaminophen (Acetaminophen 325 Mg Tab) 650 mg PO Q4H PRN PRN Reason: Headache/Fever/Mild Pain (1-3) Acetylcysteine (Acetylcysteine 20% 200 Mg/Ml 30 Ml Vial) 600 mg INH [id number] [facility] Last Admin: 08/25/20 07:40 Dose: 600 mg Documented by: Albuterol/Ipratropium (Ipratropium/Albuterol Sulfate 3 Ml Neb) 3 ml EZPAP Q6HR- RT PRN PRN Reason: SOB &/or Wheezing Aspirin (Aspirin 81 Mg Enteric Coated Tablet) 81 mg PO QPM [facility] [place] Last Admin: 08/24/20 21:03 Dose: 81 mg Documented by: Dextrose/Water (Dextrose 50% Abboject 50 Ml Syringe) 25 gm SLOW IVP PRN PRN PRN Reason: Hypoglycemia Enoxaparin Sodium (Enoxaparin Sodium 100 Mg/Ml Syringe) 100 mg SC 0900,2100 [facility] [place] Last Admin: 08/25/20 09:48 Dose: 100 mg Documented by: Famotidine (Famotidine 20 Mg Tab) 20 mg PO BID [facility] Last Admin: 08/25/20 09:47 Dose: 20 mg Documented by: Glucagon (Glucagon 1 Mg/Ml Vial) 1 mg IM PRN PRN PRN Reason: Hypoglycemia Amiodarone HCl 450 mg/Miscellaneous Medication 1 each/ Dextrose/Water 259 mls @ 0 mls/hr IVPB INF RUPESH; Protocol Last Admin: 08/23/20 09:54 Dose: 259 mls Documented by: Diltiazem HCl 125 mg/Miscellaneous Medication 1 each/ Sodium Chloride 125 mls @ 0 mls/hr IVPB INF RUPESH; Protocol Last Admin: 08/23/20 01:23 Dose: 125 mls Documented by: Dextrose/Water (D5w) 1,000 mls @ 0 mls/hr IV .Q0M PRN PRN Reason: Hypoglycemia Cefepime HCl 1 gm/ Sodium (Chloride) 100 mls @ 200 mls/hr IVPB Q8HR [facility] [place] Last Admin: 08/25/20 05:29 Dose: 100 mls Documented by: Insulin Human Lispro (Humalog 300 Units/3 Ml Vial) 0 units SC .MILD SLIDING SCALE PRN PRN Reason: Mild Correctional Scale Last Admin: 08/25/20 12:19 Dose: 4 unit Documented by: Methylprednisolone Sodium Succinate (Methylprednisolone Sod Succ 40 Mg Vial) 40 mg IVP Q6HR [facility] [place] Last Admin: 08/25/20 12:19 Dose: 40 mg Documented by: Metoprolol Tartrate (Metoprolol Tartrate 50 Mg Tab) 50 mg PO BID [facility] [place] Last Admin: 08/25/20 09:47 Dose: 50 mg Documented by: Ondansetron HCl (Ondansetron Odt 4 Mg Tab) 4 mg PO Q6H PRN PRN Reason: Nausea/Vomiting Senna/Docusate Sodium (Senokot S 8.6-50 Mg Tab) 2 tab PO BIDPRN PRN PRN Reason: Constipation Sodium Chloride (Flush - Normal Saline 10 Ml Syringe) 10 ml IVF Q12HR [facility] [place] Last Admin: 08/25/20 09:48 Dose: 10 ml Documented by: Sodium Chloride (Flush - Normal Saline 10 Ml Syringe) 10 ml IVF PRN PRN PRN Reason: Saline Flush Vital Signs & Weight: Vital Signs Temp Pulse Resp BP BP Pulse Ox 08/25/20 08:00 97.4 F L 66 17 120/58 L 96 08/25/20 04:00 98.1 F 59 L 16 142/67 H 98 Admit Weight 233 lb 7.512 oz Weight 241 lb 6.499 oz - Quality Measures Condition: Atrial Fibrillation/Flutter (hx or current) CV meds: Beta Annalise: Yes - Physical Exam General: alert & oriented x3, appears well HEENT: normocephaly Neck: supple neck Cardiac: regular rate and rhythm, no murmur Lungs: clear to auscultation Neuro: grossly intact Abdomen: unremarkable Extremities: no edema Musculoskeletal: normal range of motion - Labs Result Diagrams: 08/24/20 17:14 08/24/20 17:14 Troponin/CKMB CK-MB (CK-2) 1.6 ng/mL (0-6.6) 08/22/20 13:56 Troponin I 0.112 ng/mL (< 0.028) H 08/22/20 17:14 - Telemetry Sinus rhythms and dysrhythmias: sinus rhythm - Assessment/Plan Assessment/Plan: 1. Atrial fib./flutter: converted to NSR with amiodarone,dig.,diltiazem and betablockers. Continue amio, and betablockers if tolerated. She will have an EP consult as an outpt.. Check echo and consider stress test in future. She did not have ekg changes with HR > 140bpm. 2. DM: per primary service. 3. UTI: on antibiotics. She is stable from a cardiac point. I will stop digoxin, EP saw her today and will schedule an outpt. f/u. She will likely need an ablation. she can be d/c'd to home. Start eliquis for OAC due to risk of Aif/flutter recurrence.
[2020-08-25 16:33] VITALS: BP 124/60; TEMP 97.1
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
[2020-08-25] MEDS ORDERED: Apixaban 5 MG TAB PO SCH (21:00)
--- NOTE | 2020-08-27 21:18 | EKG ---
Test Reason : Blood Pressure : / mmHG Vent. Rate : 062 BPM Atrial Rate : 062 BPM P-R Int : 168 ms QRS Dur : 100 ms QT Int : 404 ms P-R-T Axes : 024 030 -01 degrees QTc Int : 410 ms Normal sinus rhythm Non-specific change in ST segment in Anteroseptal leads Abnormal ECG Confirmed by VERENICE MERIDA, DR. Arana ([id number]) on 08/27/2020 9:18:32 PM Referred By: KAYLA Confirmed By:DR. Yasmeen CALDERA MD
== END 2020-08-25 16:20 | disposition home or self-care (01) | DRG 871 ==
LOC: ERS 12:54 → CCU 13:42 → 2NO 08-23 14:48
PROVIDERS: ADMIT Student in an Organized Health Care Education/Training Program; ATTEND Internal Medicine
DX: A41.4 Sepsis due to anaerobes (principal); J18.9 Pneumonia, unspecified organism; J96.21 Acute and chronic respiratory failure with hypoxia; J44.1 Chronic obstructive pulmonary disease with (acute) exacerbation; J44.0 Chronic obstructive pulmonary disease with (acute) lower respiratory infection; N30.00 Acute cystitis without hematuria; I48.92 Unspecified atrial flutter; Z20.822 Contact with and (suspected) exposure to COVID-19; I48.91 Unspecified atrial fibrillation; I50.9 Heart failure, unspecified; E11.9 Type 2 diabetes mellitus without complications; J44.9 Chronic obstructive pulmonary disease, unspecified; F32.9 Major depressive disorder, single episode, unspecified; E66.01 Morbid (severe) obesity due to excess calories; E78.00 Pure hypercholesterolemia, unspecified; I11.0 Hypertensive heart disease with heart failure; Z85.07 Personal history of malignant neoplasm of pancreas; Z92.21 Personal history of antineoplastic chemotherapy; Z92.3 Personal history of irradiation; Z90.49 Acquired absence of other specified parts of digestive tract; Z90.710 Acquired absence of both cervix and uterus; Z68.37 Body mass index [BMI] 37.0-37.9, adult; Z99.81 Dependence on supplemental oxygen; Z79.899 Other long term (current) drug therapy; Z79.82 Long term (current) use of aspirin; Z79.84 Long term (current) use of oral hypoglycemic drugs
CPT/HCPCS: 36415; 36416; 36600; 71275; 80053; 81001; 82553; 82565; 82805; 83036; 84443; 84484; 85025; 87086; 93005; 93010; 93306; 94667; 94668; 96365; 96366; 99292; J0132; J0282; J0692; J1160; J1650; J1815; J2920; J3490; J7070

== ENCOUNTER 2023-06-08 12:58 | Inpatient (IN) | payer OTHER ==
[2023-06-08 13:44] LABS: #Basophils 0.1 thou/uL (0.0-0.2); #Eosinphils 0.2 thou/uL (0.0-0.7); #Monocytes 0.8 thou/uL (0.11-0.59); #Neutrophils 8.4 thou/uL (1.40-6.50); %Basophils 0.6 % (0.0-1.0); %Lymphocytes 20.2 % (21.0-51.0); %Monocytes 6.3 % (0.0-10.0); %Neutrophils 70.2 % (42.0-75.0); Hematocrit 31.5 % (36.0-47.0); Hemoglobin 8.6 g/dL (12.0-16.0); Mean Corpuscular HGB CONC 27.3 g/dL (32.0-36.0); Mean Corpuscular Hemoglobin 21.4 pg (27.0-31.0); Mean Corpuscular Volume 78.4 fl (78.0-98.0); Mean Platelet Volume 11.4 fL (7.4-10.4); Platelet Count 242 10x3/uL (130-400); RBC Distribution Width 18.1 % (11.5-14.5); Red Blood Cell (RBC) Count 4.02 mill/uL (4.20-5.40); White Blood Cell (WBC) Count 11.9 10x3/uL (4.8-10.8)
[2023-06-08 14:11] LABS: ALT (SGPT) 23 U/L (8-55); AST (SGOT) 15 U/L (5-34); Albumin 3.9 g/dL (3.4-4.8); Alkaline Phosphatase 95 U/L (40-110); Anion Gap 17 mmol/L (10-20); BUN (Urea Nitrogen) 38 mg/dL (9.8-20.1); Bilirubin, Total 0.7 mg/dL (0.2-1.2); Calc. Creatinine Clearance 0 mL/min (70-130); Carbon Dioxide 24 mmol/L (23-31); Chloride 99 mmol/L (98-107); Estimated GFR 42; Globulin 2.6 g/dL (2.4-3.5); Glucose 197 mg/dL (80-115); Potassium 4.4 mmol/L (3.5-5.1); Protein, Total 6.5 g/dL (5.8-8.1); Sodium 136 mmol/L (136-145)
[2023-06-08 14:13] LABS: Troponin I Less than 0.010 ng/mL (< 0.028)
[2023-06-08 14:27] LABS: Anisocytosis SLIGHT = 6-15 cells HPF (0-5); CellaVision Operator ID LAB.KB; Hypochromia SLIGHT = 6-15 cells HPF (0-5); Microcytosis SLIGHT = 6-15 cells HPF (0-5); Platelet Adequacy Comment Platelets Normal; Polychromasia SLIGHT = 2-3 cells HPF (0-2); Stomatocytes SLIGHT = 2-5 cells HPF (0-1)
[2023-06-08] MEDS ORDERED: LevoFLOXacin 750 mg/D5W 150 ml Premix Bag ONE (14:38)
[2023-06-08] MEDS ORDERED: Magnesium 2 GM/50 ML BAG (IN WATER) ONE (14:38)
[2023-06-08] MEDS ORDERED: methylPREDNISolone Sod Succ/PF 125 MG/2 ML VIAL ONE (14:38)
[2023-06-08] MEDS ORDERED: Cefepime 2 GM VIAL ONE (14:39)
[2023-06-08] MEDS ORDERED: Ipratropium/Albuterol 3 ML NEB ONE (14:41)
[2023-06-08 14:45] LABS: Base Excess -5.6 mEq/L (-2.0 to +3.0); Calcium, Ionized (venous) 1.09 mmol/L (1.16-1.32); Chloride (VBG) 99 mmol/L (98-106); Hematocrit-VBG 29 % (36.0-47.0); Hemoglobin (Hb) 9.9 g/dL (11.7-16.0); Potassium (VBG) 4.37 mmol/L (3.70-5.30); Sodium 137 mmol/L (133-146)
[2023-06-08] MEDS ORDERED: Acetaminophen 325 MG TAB PO PRN (16:27)
[2023-06-08] MEDS ORDERED: Ondansetron PF 4 MG/2 ML Vial IVP PRN (16:27)
[2023-06-08] MEDS ORDERED: Acetaminophen 650 MG Suppository PR PRN (16:27)
[2023-06-08] MEDS ORDERED: Senokot S 8.6-50 MG TAB PO PRN (16:27)
[2023-06-08] MEDS ORDERED: Guaifenesin DM 100-10/5 ML UDCUP PO PRN (16:27)
[2023-06-08] MEDS ORDERED: Ondansetron ODT 4 MG TAB PO PRN (16:27)
[2023-06-08] MEDS ORDERED: Dextrose 50% Abboject 50 ML SYRINGE SLOW IVP PRN (16:28)
[2023-06-08] MEDS ORDERED: Dextrose 5% in Water 1,000 ML IV PRN (16:28)
[2023-06-08] MEDS ORDERED: Glucagon 1 MG/ML KIT IM PRN (16:28)
[2023-06-08 18:24] LABS: Lactic Acid 3.3 mmol/L (0.5-2.2)
[2023-06-08] MEDS: Famotidine 20 MG TAB PO SCH (20:18)
[2023-06-09] MEDS ORDERED: Cefepime 1 GM in Sodium Chloride 0.9% 100 ML IVPB SCH (02:00)
[2023-06-09] MEDS: Furosemide 40 MG/4 ML VIAL SLOW IVP SCH ×2 (06:00→13:09)
[2023-06-09 06:04] VITALS: BMI 40.7
[2023-06-09 06:09] LABS: #Monocytes 0.4 thou/uL (0.11-0.59); #Neutrophils 7.4 thou/uL (1.40-6.50); %Basophils 0.2 % (0.0-1.0); %Eosinophils 0.1 % (0.0-10.0); %Lymphocytes 12.3 % (21.0-51.0); %Monocytes 4.5 % (0.0-10.0); %Neutrophils 80.4 % (42.0-75.0); Hemoglobin 8.6 g/dL (12.0-16.0); Mean Corpuscular HGB CONC 26.9 g/dL (32.0-36.0); Mean Corpuscular Hemoglobin 21.7 pg (27.0-31.0); Mean Corpuscular Volume 80.6 fl (78.0-98.0); Mean Platelet Volume 11.5 fL (7.4-10.4); Platelet Count 184 10x3/uL (130-400); RBC Distribution Width 17.9 % (11.5-14.5); Red Blood Cell (RBC) Count 3.97 mill/uL (4.20-5.40); White Blood Cell (WBC) Count 9.2 10x3/uL (4.8-10.8)
[2023-06-09 06:36] LABS: Anion Gap 15 mmol/L (10-20); BUN (Urea Nitrogen) 34 mg/dL (9.8-20.1); Calc. Creatinine Clearance 124 mL/min (70-130); Calcium 8.6 mg/dL (7.8-10.44); Carbon Dioxide 25 mmol/L (23-31); Chloride 101 mmol/L (98-107); Estimated GFR 73; Glucose 169 mg/dL (80-115); Magnesium 2.4 mg/dL (1.6-2.6); Potassium 4.7 mmol/L (3.5-5.1); Sodium 136 mmol/L (136-145)
[2023-06-09] MEDS: Famotidine 20 MG TAB PO SCH ×2 (08:39→20:39)
[2023-06-09] MEDS: HumaLOG 300 UNITS/3 ML VIAL SC PRN ×3 (11:47→20:39)
[2023-06-09] MEDS: Ipratropium/Albuterol 3 ML NEB NEB SCH ×3 (12:08→23:32)
[2023-06-09] MEDS: Cefepime 2 GM in Sodium Chloride 0.9% 100 ML IVPB SCH (13:09)
[2023-06-09] MEDS ORDERED: Ipratropium/Albuterol 3 ML NEB NEB SCH (15:00)
[2023-06-09] MEDS: Mometasone 100 MCG/PUFF (1 INHALER) INH SCH (18:56)
[2023-06-09] MEDS: Budesonide 0.5 MG/2 ML NEB INH SCH (18:57)
[2023-06-09] MEDS: DULoxetine 60 MG CAP PO SCH (20:39)
[2023-06-09] MEDS: Apixaban 5 MG TAB PO SCH (20:39)
[2023-06-09] MEDS ORDERED: Non-Formulary Item 1 EACH (Apixaban [Eliquis] 5 MG Tab.Ds.Pk) PO SCH (21:00)
[2023-06-10] MEDS: Cefepime 2 GM in Sodium Chloride 0.9% 100 ML IVPB SCH ×2 (02:07→13:37)
[2023-06-10 05:13] LABS: Hematocrit 29.5 % (36.0-47.0); Mean Corpuscular HGB CONC 27.1 g/dL (32.0-36.0); Mean Corpuscular Hemoglobin 21.4 pg (27.0-31.0); Mean Corpuscular Volume 78.9 fl (78.0-98.0); Mean Platelet Volume 10.3 fL (7.4-10.4); Platelet Count 183 10x3/uL (130-400); RBC Distribution Width 17.7 % (11.5-14.5); Red Blood Cell (RBC) Count 3.74 mill/uL (4.20-5.40); White Blood Cell (WBC) Count 10.7 10x3/uL (4.8-10.8)
[2023-06-10 05:40] LABS: Anion Gap 14 mmol/L (10-20); BUN (Urea Nitrogen) 20 mg/dL (9.8-20.1); Calc. Creatinine Clearance 131 mL/min (70-130); Calcium 8.8 mg/dL (7.8-10.44); Carbon Dioxide 31 mmol/L (23-31); Chloride 100 mmol/L (98-107); Estimated GFR 79; Glucose 166 mg/dL (80-115); Potassium 3.6 mmol/L (3.5-5.1); Sodium 141 mmol/L (136-145)
[2023-06-10] MEDS: Furosemide 40 MG/4 ML VIAL SLOW IVP SCH ×2 (05:46→13:38)
[2023-06-10 05:50] LABS: Lactic Acid 0.6 mmol/L (0.5-2.2)
[2023-06-10] MEDS: HumaLOG 300 UNITS/3 ML VIAL SC PRN ×4 (07:19→20:33)
[2023-06-10] MEDS: Apixaban 5 MG TAB PO SCH ×2 (07:19→20:32)
[2023-06-10] MEDS: Famotidine 20 MG TAB PO SCH ×2 (07:19→20:32)
[2023-06-10] MEDS: Ipratropium/Albuterol 3 ML NEB NEB SCH ×3 (07:41→19:30)
[2023-06-10] MEDS: Budesonide 0.5 MG/2 ML NEB INH SCH ×2 (07:42→19:29)
[2023-06-10] MEDS: Mometasone 100 MCG/PUFF (1 INHALER) INH SCH ×2 (07:43→19:44)
[2023-06-10] MEDS ORDERED: Electrolyte Replacement Protocol FS PRN (08:30)
[2023-06-10] MEDS ORDERED: Electrolyte Replacement Protocol 1 EACH FS SCH (08:30)
[2023-06-10] MEDS: Metoprolol Tartrate 100 MG TAB PO SCH ×2 (08:32→20:33)
[2023-06-10] MEDS ORDERED: Non-Formulary Item 1 EACH (Fluticasone/Umeclidin/Vilanter [Trelegy Ellipta 200-62.5-25] 1 INH SCH (09:00)
[2023-06-10] MEDS: DULoxetine 60 MG CAP PO SCH (20:32)
[2023-06-11] MEDS: Cefepime 2 GM in Sodium Chloride 0.9% 100 ML IVPB SCH ×2 (01:03→13:50)
[2023-06-11] MEDS: Ipratropium/Albuterol 3 ML NEB NEB SCH ×4 (01:30→19:04)
[2023-06-11 04:40] LABS: #Basophils 0.1 thou/uL (0.0-0.2); #Eosinphils 0.3 thou/uL (0.0-0.7); #Monocytes 0.9 thou/uL (0.11-0.59); #Neutrophils 6.1 thou/uL (1.40-6.50); %Basophils 0.5 % (0.0-1.0); %Eosinophils 3.6 % (0.0-10.0); %Lymphocytes 21.3 % (21.0-51.0); %Monocytes 9.2 % (0.0-10.0); %Neutrophils 64.9 % (42.0-75.0); Hematocrit 29.9 % (36.0-47.0); Hemoglobin 8.2 g/dL (12.0-16.0); Mean Corpuscular HGB CONC 27.4 g/dL (32.0-36.0); Mean Corpuscular Hemoglobin 21.6 pg (27.0-31.0); Mean Corpuscular Volume 78.9 fl (78.0-98.0); Mean Platelet Volume 10.8 fL (7.4-10.4); Platelet Count 188 10x3/uL (130-400); RBC Distribution Width 17.5 % (11.5-14.5); Red Blood Cell (RBC) Count 3.79 mill/uL (4.20-5.40); White Blood Cell (WBC) Count 9.4 10x3/uL (4.8-10.8)
[2023-06-11 05:16] LABS: ALT (SGPT) 18 U/L (8-55); AST (SGOT) 17 U/L (5-34); Albumin 3.3 g/dL (3.4-4.8); Alkaline Phosphatase 75 U/L (40-110); Anion Gap 14 mmol/L (10-20); BUN (Urea Nitrogen) 19 mg/dL (9.8-20.1); Bilirubin, Direct 0.3 mg/dL (0.1-0.3); Bilirubin, Total 0.7 mg/dL (0.2-1.2); Calc. Creatinine Clearance 143 mL/min (70-130); Calcium 8.7 mg/dL (7.8-10.44); Carbon Dioxide 32 mmol/L (23-31); Chloride 98 mmol/L (98-107); Estimated GFR 87; Glucose 151 mg/dL (80-115); Magnesium 1.8 mg/dL (1.6-2.6); Potassium 3.5 mmol/L (3.5-5.1); Protein, Total 5.9 g/dL (5.8-8.1); Sodium 140 mmol/L (136-145)
[2023-06-11 05:50] LABS: CellaVision Operator ID lab.abc; Hypochromia SLIGHT = 6-15 cells HPF (0-5); Microcytosis SLIGHT = 6-15 cells HPF (0-5); Platelet Adequacy Comment Platelets Normal; Polychromasia SLIGHT = 2-3 cells HPF (0-2)
[2023-06-11] MEDS: Furosemide 40 MG/4 ML VIAL SLOW IVP SCH ×2 (05:55→13:50)
[2023-06-11] MEDS: Budesonide 0.5 MG/2 ML NEB INH SCH ×2 (07:10→19:05)
[2023-06-11] MEDS: Mometasone 100 MCG/PUFF (1 INHALER) INH SCH ×2 (07:11→19:06)
[2023-06-11] MEDS: Famotidine 20 MG TAB PO SCH ×2 (07:14→20:10)
[2023-06-11] MEDS: HumaLOG 300 UNITS/3 ML VIAL SC PRN ×3 (07:15→17:14)
[2023-06-11] MEDS: Apixaban 5 MG TAB PO SCH ×2 (07:15→20:10)
[2023-06-11] MEDS: Metoprolol Tartrate 100 MG TAB PO SCH ×2 (07:15→20:10)
[2023-06-11] MEDS ORDERED: Magnesium 2 GM/50 ML(in water) 2 GM in Premix 1 BAG IVPB SCH (08:00)
[2023-06-11] MEDS ORDERED: Potassium Chloride 20 MEQ TAB PO SCH (08:00)
[2023-06-11 16:16] VITALS: BP 114/64
[2023-06-11] MEDS: DULoxetine 60 MG CAP PO SCH (20:10)
[2023-06-12] MEDS: Ipratropium/Albuterol 3 ML NEB NEB SCH ×3 (01:01→12:38)
[2023-06-12] MEDS: Cefepime 2 GM in Sodium Chloride 0.9% 100 ML IVPB SCH (03:10)
[2023-06-12 05:04] LABS: #Eosinphils 0.4 thou/uL (0.0-0.7); #Monocytes 0.8 thou/uL (0.11-0.59); #Neutrophils 6.6 thou/uL (1.40-6.50); %Basophils 0.3 % (0.0-1.0); %Lymphocytes 18.7 % (21.0-51.0); %Monocytes 8.7 % (0.0-10.0); %Neutrophils 67.9 % (42.0-75.0); Hematocrit 30.9 % (36.0-47.0); Hemoglobin 8.4 g/dL (12.0-16.0); Mean Corpuscular HGB CONC 27.2 g/dL (32.0-36.0); Mean Corpuscular Hemoglobin 21.1 pg (27.0-31.0); Mean Corpuscular Volume 77.4 fl (78.0-98.0); Mean Platelet Volume 10.4 fL (7.4-10.4); Platelet Count 187 10x3/uL (130-400); RBC Distribution Width 17.4 % (11.5-14.5); Red Blood Cell (RBC) Count 3.99 mill/uL (4.20-5.40); White Blood Cell (WBC) Count 9.7 10x3/uL (4.8-10.8)
[2023-06-12 05:31] LABS: Phosphorus 3.1 mg/dL (2.3-4.7)
[2023-06-12 05:32] LABS: Anion Gap 14 mmol/L (10-20); BUN (Urea Nitrogen) 19 mg/dL (9.8-20.1); Calc. Creatinine Clearance 147 mL/min (70-130); Calcium 8.8 mg/dL (7.8-10.44); Carbon Dioxide 32 mmol/L (23-31); Chloride 97 mmol/L (98-107); Estimated GFR 93; Glucose 167 mg/dL (80-115); Magnesium 1.9 mg/dL (1.6-2.6); Potassium 3.6 mmol/L (3.5-5.1); Sodium 139 mmol/L (136-145)
[2023-06-12] MEDS: Furosemide 40 MG/4 ML VIAL SLOW IVP SCH ×2 (05:59→13:17)
[2023-06-12] MEDS: HumaLOG 300 UNITS/3 ML VIAL SC PRN (06:06)
[2023-06-12] MEDS: Budesonide 0.5 MG/2 ML NEB INH SCH (06:27)
[2023-06-12 06:28] LABS: Anisocytosis SLIGHT = 6-15 cells HPF (0-5); CellaVision Operator ID LAB.JMM; Hypochromia SLIGHT = 6-15 cells HPF (0-5); Microcytosis SLIGHT = 6-15 cells HPF (0-5); Platelet Adequacy Comment Platelets Normal; Polychromasia SLIGHT = 2-3 cells HPF (0-2); Stomatocytes MODERATE= 6-15 cells HPF (0-1)
[2023-06-12] MEDS: Mometasone 100 MCG/PUFF (1 INHALER) INH SCH (06:30)
[2023-06-12] MEDS: Famotidine 20 MG TAB PO SCH (07:45)
[2023-06-12] MEDS: Metoprolol Tartrate 100 MG TAB PO SCH (07:46)
[2023-06-12] MEDS: Apixaban 5 MG TAB PO SCH (07:46)
[2023-06-12] MEDS ORDERED: Magnesium 2 GM/50 ML(in water) 2 GM in Premix 1 BAG IVPB SCH (08:00)
[2023-06-12 11:37] VITALS: TEMP 97.5
== END 2023-06-12 15:45 | disposition home or self-care (01) | DRG 193 ==
LOC: ERS 12:58 → ERHOLD 15:30 → IMCU/EMU 18:57
PROVIDERS: ADMIT Internal Medicine; ATTEND Family Medicine
PROC: 5A09357 Assistance with Respiratory Ventilation, Less than 24 Consecutive Hours, Continuous Positive Airway Pressure (ICD-10-PCS; 2023-06-09)
PROC: 5A09357 Assistance with Respiratory Ventilation, Less than 24 Consecutive Hours, Continuous Positive Airway Pressure (ICD-10-PCS; principal; 2023-06-12)
DX: J18.9 Pneumonia, unspecified organism (principal); I50.33 Acute on chronic diastolic (congestive) heart failure; J96.21 Acute and chronic respiratory failure with hypoxia; J96.22 Acute and chronic respiratory failure with hypercapnia; J44.0 Chronic obstructive pulmonary disease with (acute) lower respiratory infection; E87.20 Acidosis, unspecified; I48.92 Unspecified atrial flutter; N17.9 Acute kidney failure, unspecified; E11.9 Type 2 diabetes mellitus without complications; K21.9 Gastro-esophageal reflux disease without esophagitis; D64.9 Anemia, unspecified; F32.A Depression, unspecified; E66.01 Morbid (severe) obesity due to excess calories; G47.33 Obstructive sleep apnea (adult) (pediatric); I48.0 Paroxysmal atrial fibrillation; Z79.84 Long term (current) use of oral hypoglycemic drugs; Z79.01 Long term (current) use of anticoagulants; Z79.899 Other long term (current) drug therapy; Z90.49 Acquired absence of other specified parts of digestive tract; Z99.81 Dependence on supplemental oxygen; Z87.891 Personal history of nicotine dependence; Z98.890 Other specified postprocedural states; Z90.710 Acquired absence of both cervix and uterus; Z68.38 Body mass index [BMI] 38.0-38.9, adult
CPT/HCPCS: 36415; 36416; 71045; 80048; 80053; 80076; 82805; 83605; 83735; 83880; 84100; 84145; 84484; 85025; 85027; 87040; 93005; 93306; 94640; 94660; 96365; 96366; 96367; 96368; 96375; J0692; J1940; J1956; J2930; J3475; J3490; J7620; J7626

== ENCOUNTER 2023-07-09 02:27 | Inpatient (IN) | payer OTHER ==
[2023-07-09 04:21] LABS: Troponin I Less than 0.010 ng/mL (< 0.028)
[2023-07-09] MEDS ORDERED: Piperacillin/Tazobactam 3.375 GM VIAL ONE (04:58)
[2023-07-09 06:46] LABS: Troponin I Less than 0.010 ng/mL (< 0.028)
[2023-07-09 07:53] LABS: Lactic Acid 1.3 mmol/L (0.5-2.2)
[2023-07-09] MEDS ORDERED: Vancomycin 1 GM/200 ML (FROZEN) BAG ONE (08:57)
[2023-07-09] MEDS ORDERED: Bisacodyl 5 MG TAB PO PRN (09:39)
[2023-07-09] MEDS ORDERED: Acetaminophen 325 MG TAB PO PRN (09:39)
[2023-07-09] MEDS ORDERED: Senokot S 8.6-50 MG TAB PO PRN (09:39)
[2023-07-09] MEDS ORDERED: Ondansetron PF 4 MG/2 ML Vial IVP PRN (09:39)
[2023-07-09] MEDS ORDERED: Bisacodyl 10 MG SUPP PR PRN (09:39)
[2023-07-09] MEDS ORDERED: Ipratropium/Albuterol 3 ML NEB NEB PRN (09:45)
[2023-07-09] MEDS ORDERED: Vancomycin 1 GM in Sodium Chloride 0.9% 500 ML IVPB SCH (09:45)
[2023-07-09] MEDS ORDERED: Dextrose 5% in Water 1,000 ML IV PRN (09:52)
[2023-07-09] MEDS ORDERED: HumaLOG 300 UNITS/3 ML VIAL SC PRN (09:52)
[2023-07-09] MEDS ORDERED: Glucagon 1 MG/ML KIT IM PRN (09:52)
[2023-07-09] MEDS ORDERED: Dextrose 50% Abboject 50 ML SYRINGE SLOW IVP PRN (09:52)
[2023-07-09] MEDS ORDERED: Vancomycin 1 GM in Premix 1 BAG IVPB SCH (10:00)
[2023-07-09] MEDS ORDERED: methylPREDNISolone Sod Succ/PF 125 MG/2 ML VIAL IVP SCH (10:00)
[2023-07-09] MEDS ORDERED: Furosemide 100 MG (10 mL) VIAL SLOW IVP SCH (10:00)
[2023-07-09] MEDS ORDERED: Ipratropium/Albuterol 3 ML NEB NEB SCH (10:00)
[2023-07-09 11:16] LABS: Troponin I Less than 0.010 ng/mL (< 0.028)
[2023-07-09] MEDS ORDERED: Iopamidol 370 76% 100 ML VIAL ONE (11:20)
[2023-07-09] MEDS ORDERED: LevoFLOXacin 750 mg/D5W 150 ml Premix Bag ONE ×2 (11:42→11:43)
[2023-07-09] MEDS ORDERED: Furosemide 40 MG (4 mL) VIAL ONE (11:42)
[2023-07-09] MEDS ORDERED: methylPREDNISolone Sod Succ/PF 125 MG/2 ML VIAL ONE (11:42)
[2023-07-09] MEDS: LevoFLOXacin 750 mg/D5W 750 MG in Premix 1 BAG IVPB SCH (11:56)
[2023-07-09 12:26] LABS: Hemoglobin A1c 6.8 % (4.0-6.0)
[2023-07-09 12:32] LABS: Actual Bicarbonate (HCO3v) 27.9 mEq/L (22-28); Base Excess 1.1 mEq/L (-2.0 to +3.0); Calcium, Ionized (venous) 1.11 mmol/L (1.16-1.32); Chloride (VBG) 103 mmol/L (98-106); Hematocrit-VBG 27 % (36.0-47.0); Hemoglobin (Hb) 9.1 g/dL (11.7-16.0); Potassium (VBG) 4.69 mmol/L (3.70-5.30); Sodium 140 mmol/L (133-146); pH (venous) 7.312 (7.32-7.43)
[2023-07-09 13:41] VITALS: BMI 38.7
[2023-07-09] MEDS: Ipratropium/Albuterol 3 ML NEB NEB SCH ×2 (14:03→19:10)
[2023-07-09] MEDS: Cefepime 2 GM in Sodium Chloride 0.9% 100 ML IVPB SCH ×2 (14:31→22:11)
[2023-07-09] MEDS: Furosemide 40 MG (4 mL) VIAL SLOW IVP SCH (14:31)
[2023-07-09 14:51] LABS: Legionella Urinary Ag Negative (Negative); Strep pneumo Urine Ag NEGATIVE (NEGATIVE)
[2023-07-09] MEDS ORDERED: Empagliflozin 10 MG TAB PO SCH (15:30)
[2023-07-09] MEDS: methylPREDNISolone Sod Succ 40 MG VIAL IVP SCH ×2 (18:13→23:05)
[2023-07-09] MEDS: Mometasone/Formoterol 200/5 60 PUFF INH SCH (19:10)
[2023-07-09] MEDS: Zolpidem Tartrate 5 MG TAB PO SCH (20:57)
[2023-07-09] MEDS: Apixaban 5 MG TAB PO SCH (20:58)
[2023-07-09] MEDS: Metoprolol Tartrate 50 MG TAB PO SCH (20:58)
[2023-07-09] MEDS: Famotidine 20 MG TAB PO SCH (20:58)
[2023-07-09] MEDS: DULoxetine 60 MG CAP PO SCH (20:58)
[2023-07-09] MEDS ORDERED: Non-Formulary Item 1 EACH (Apixaban [Eliquis] 5 MG Tab.Ds.Pk) PO SCH (21:00)
[2023-07-09] MEDS ORDERED: Metoprolol Tartrate 50 MG TAB PO SCH (21:00)
[2023-07-10] MEDS: Ipratropium/Albuterol 3 ML NEB NEB SCH ×5 (01:16→22:39)
[2023-07-10] MEDS: methylPREDNISolone Sod Succ 40 MG VIAL IVP SCH ×3 (05:48→21:17)
[2023-07-10] MEDS: Furosemide 40 MG (4 mL) VIAL SLOW IVP SCH ×2 (05:48→12:58)
[2023-07-10] MEDS: Cefepime 2 GM in Sodium Chloride 0.9% 100 ML IVPB SCH ×3 (05:48→21:17)
[2023-07-10] MEDS: Mometasone/Formoterol 200/5 60 PUFF INH SCH ×2 (06:54→20:02)
[2023-07-10 07:34] LABS: #Monocytes 0.2 thou/uL (0.11-0.59); #Neutrophils 7.8 thou/uL (1.40-6.50); %Basophils 0.1 % (0.0-1.0); %Lymphocytes 8.8 % (21.0-51.0); %Monocytes 2.2 % (0.0-10.0); %Neutrophils 87.2 % (42.0-75.0); Hematocrit 29.4 % (36.0-47.0); Hemoglobin 7.6 g/dL (12.0-16.0); Mean Corpuscular HGB CONC 25.9 g/dL (32.0-36.0); Mean Corpuscular Hemoglobin 20.1 pg (27.0-31.0); Mean Corpuscular Volume 77.6 fl (78.0-98.0); Platelet Count 255 10x3/uL (130-400); RBC Distribution Width 19.9 % (11.5-14.5); Red Blood Cell (RBC) Count 3.79 mill/uL (4.20-5.40); White Blood Cell (WBC) Count 8.9 10x3/uL (4.8-10.8)
[2023-07-10] MEDS: Metoprolol Tartrate 50 MG TAB PO SCH ×2 (08:10→21:16)
[2023-07-10] MEDS: Famotidine 20 MG TAB PO SCH ×2 (08:10→21:16)
[2023-07-10] MEDS: LevoFLOXacin 750 mg/D5W 750 MG in Premix 1 BAG IVPB SCH (08:10)
[2023-07-10] MEDS: Apixaban 5 MG TAB PO SCH ×2 (08:10→21:16)
[2023-07-10 08:18] LABS: Anion Gap 11 mmol/L (10-20); BUN (Urea Nitrogen) 24 mg/dL (9.8-20.1); Calc. Creatinine Clearance 108 mL/min (70-130); Calcium 8.8 mg/dL (7.8-10.44); Carbon Dioxide 30 mmol/L (23-31); Chloride 100 mmol/L (98-107); Estimated GFR 66; Glucose 174 mg/dL (80-115); Magnesium 1.6 mg/dL (1.6-2.6); Potassium 4.4 mmol/L (3.5-5.1); Sodium 137 mmol/L (136-145)
[2023-07-10 09:30] LABS: Microcytosis SLIGHT = 6-15 cells (100X) (0-5/hpf)
[2023-07-10 09:31] LABS: Hypochromia SLIGHT = 6-15 cells (100X) (0-5/hpf); Ovalocytes SLIGHT = 2-5 cells (100X) (0-1/hpf); Platelet Adequacy Comment Appears Adequate
[2023-07-10] MEDS: HumaLOG 300 UNITS/3 ML VIAL SC PRN ×2 (12:58→17:36)
[2023-07-10] MEDS: DULoxetine 60 MG CAP PO SCH (21:16)
[2023-07-10] MEDS: Zolpidem Tartrate 5 MG TAB PO SCH (21:17)
[2023-07-11 05:34] LABS: #Monocytes 0.4 thou/uL (0.11-0.59); #Neutrophils 11.4 thou/uL (1.40-6.50); %Basophils 0.1 % (0.0-1.0); %Lymphocytes 5.5 % (21.0-51.0); %Monocytes 3.3 % (0.0-10.0); %Neutrophils 89.8 % (42.0-75.0); Hematocrit 29.4 % (36.0-47.0); Hemoglobin 7.7 g/dL (12.0-16.0); Mean Corpuscular HGB CONC 26.2 g/dL (32.0-36.0); Mean Corpuscular Hemoglobin 19.9 pg (27.0-31.0); Mean Platelet Volume 11.6 fL (7.4-10.4); Platelet Count 252 10x3/uL (130-400); RBC Distribution Width 19.9 % (11.5-14.5); Red Blood Cell (RBC) Count 3.87 mill/uL (4.20-5.40); White Blood Cell (WBC) Count 12.7 10x3/uL (4.8-10.8)
[2023-07-11] MEDS: Furosemide 40 MG (4 mL) VIAL SLOW IVP SCH ×2 (05:51→13:50)
[2023-07-11] MEDS: Cefepime 2 GM in Sodium Chloride 0.9% 100 ML IVPB SCH (05:51)
[2023-07-11] MEDS: HumaLOG 300 UNITS/3 ML VIAL SC PRN ×2 (06:00→19:01)
[2023-07-11 06:12] LABS: Iron 10 ug/dL (50-170); Iron Binding Capacity, Total 501 mcg/dL (265-497)
[2023-07-11 06:18] LABS: Anion Gap 13 mmol/L (10-20); BUN (Urea Nitrogen) 25 mg/dL (9.8-20.1); Calc. Creatinine Clearance 103 mL/min (70-130); Calcium 8.9 mg/dL (7.8-10.44); Carbon Dioxide 32 mmol/L (23-31); Chloride 99 mmol/L (98-107); Estimated GFR 64; Glucose 221 mg/dL (80-115); Iron 9 ug/dL (50-170); Magnesium 1.7 mg/dL (1.6-2.6); Potassium 4.1 mmol/L (3.5-5.1); Sodium 140 mmol/L (136-145)
[2023-07-11] MEDS: Ipratropium/Albuterol 3 ML NEB NEB SCH ×4 (06:34→22:42)
[2023-07-11] MEDS: Mometasone/Formoterol 200/5 60 PUFF INH SCH ×2 (06:36→18:20)
[2023-07-11] MEDS: Famotidine 20 MG TAB PO SCH ×2 (08:08→20:15)
[2023-07-11] MEDS: Metoprolol Tartrate 50 MG TAB PO SCH ×2 (08:08→20:15)
[2023-07-11] MEDS: Apixaban 5 MG TAB PO SCH ×2 (08:08→20:15)
[2023-07-11] MEDS: Empagliflozin 10 MG TAB PO SCH (08:09)
[2023-07-11] MEDS: methylPREDNISolone Sod Succ 40 MG VIAL IVP SCH (08:09)
[2023-07-11] MEDS: LevoFLOXacin 750 mg/D5W 750 MG in Premix 1 BAG IVPB SCH (10:11)
[2023-07-11] MEDS: DULoxetine 60 MG CAP PO SCH (20:15)
[2023-07-11] MEDS: Zolpidem Tartrate 5 MG TAB PO SCH (20:15)
[2023-07-12] MEDS: Furosemide 40 MG (4 mL) VIAL SLOW IVP SCH ×2 (06:02→14:40)
[2023-07-12 07:05] LABS: #Eosinphils 0.1 thou/uL (0.0-0.7); #Monocytes 1.2 thou/uL (0.11-0.59); #Neutrophils 9.8 thou/uL (1.40-6.50); %Basophils 0.1 % (0.0-1.0); %Eosinophils 0.4 % (0.0-10.0); %Lymphocytes 17.3 % (21.0-51.0); %Monocytes 8.8 % (0.0-10.0); %Neutrophils 72.8 % (42.0-75.0); Hematocrit 31.2 % (36.0-47.0); Hemoglobin 8.2 g/dL (12.0-16.0); Mean Corpuscular HGB CONC 26.3 g/dL (32.0-36.0); Mean Corpuscular Volume 76.3 fl (78.0-98.0); Mean Platelet Volume 10.1 fL (7.4-10.4); Platelet Count 223 10x3/uL (130-400); RBC Distribution Width 19.7 % (11.5-14.5); Red Blood Cell (RBC) Count 4.09 mill/uL (4.20-5.40); White Blood Cell (WBC) Count 13.4 10x3/uL (4.8-10.8)
[2023-07-12] MEDS: Mometasone/Formoterol 200/5 60 PUFF INH SCH ×2 (07:25→19:00)
[2023-07-12] MEDS: Ipratropium/Albuterol 3 ML NEB NEB SCH ×4 (07:26→23:47)
[2023-07-12 07:27] LABS: Anion Gap 14 mmol/L (10-20); BUN (Urea Nitrogen) 27 mg/dL (9.8-20.1); Calc. Creatinine Clearance 115 mL/min (70-130); Calcium 9.2 mg/dL (7.8-10.44); Carbon Dioxide 34 mmol/L (23-31); Chloride 97 mmol/L (98-107); Estimated GFR 71; Glucose 129 mg/dL (80-115); Magnesium 1.8 mg/dL (1.6-2.6); Potassium 3.4 mmol/L (3.5-5.1); Sodium 142 mmol/L (136-145)
[2023-07-12 08:44] LABS: Polychromasia SLIGHT = 2-3 cells (100X) (0-2/hpf)
[2023-07-12 08:45] LABS: Hypochromia SLIGHT = 6-15 cells (100X) (0-5/hpf); Microcytosis SLIGHT = 6-15 cells (100X) (0-5/hpf); Ovalocytes SLIGHT = 2-5 cells (100X) (0-1/hpf); Platelet Adequacy Comment Platelets Normal; Stomatocytes MODERATE= 6-15 cells (100X) (0-1/hpf)
[2023-07-12] MEDS: Famotidine 20 MG TAB PO SCH ×2 (08:45→20:13)
[2023-07-12] MEDS: Empagliflozin 10 MG TAB PO SCH (08:49)
[2023-07-12] MEDS: Metoprolol Tartrate 50 MG TAB PO SCH ×2 (08:50→20:13)
[2023-07-12] MEDS: Apixaban 5 MG TAB PO SCH ×2 (08:50→20:13)
[2023-07-12] MEDS: methylPREDNISolone Sod Succ 40 MG VIAL IVP SCH (08:51)
[2023-07-12] MEDS ORDERED: Potassium Chloride 20 MEQ TAB PO SCH (09:00)
[2023-07-12] MEDS: HumaLOG 300 UNITS/3 ML VIAL SC PRN (19:03)
[2023-07-12] MEDS: DULoxetine 60 MG CAP PO SCH (20:13)
[2023-07-12] MEDS: Zolpidem Tartrate 5 MG TAB PO SCH (20:13)
[2023-07-12 22:08] LABS: Mycoplasma pneumoniae IgG AB 932 U/mL (0-99); Mycoplasma pneumoniae IgM AB Less than 770 U/mL (0-769)
[2023-07-13] MEDS: Furosemide 40 MG (4 mL) VIAL SLOW IVP SCH (05:52)
[2023-07-13 06:31] LABS: #Eosinphils 0.1 thou/uL (0.0-0.7); #Neutrophils 8.2 thou/uL (1.40-6.50); %Eosinophils 0.5 % (0.0-10.0); %Lymphocytes 21.6 % (21.0-51.0); %Monocytes 8.2 % (0.0-10.0); %Neutrophils 69.4 % (42.0-75.0); Hematocrit 29.2 % (36.0-47.0); Hemoglobin 7.8 g/dL (12.0-16.0); Mean Corpuscular HGB CONC 26.7 g/dL (32.0-36.0); Mean Corpuscular Hemoglobin 19.8 pg (27.0-31.0); Mean Corpuscular Volume 74.3 fl (78.0-98.0); Mean Platelet Volume 11.7 fL (7.4-10.4); Platelet Count 246 10x3/uL (130-400); RBC Distribution Width 19.3 % (11.5-14.5); Red Blood Cell (RBC) Count 3.93 mill/uL (4.20-5.40); White Blood Cell (WBC) Count 11.8 10x3/uL (4.8-10.8)
[2023-07-13 07:21] LABS: Anion Gap 13 mmol/L (10-20); BUN (Urea Nitrogen) 28 mg/dL (9.8-20.1); Calc. Creatinine Clearance 122 mL/min (70-130); Calcium 9.2 mg/dL (7.8-10.44); Carbon Dioxide 37 mmol/L (23-31); Chloride 95 mmol/L (98-107); Estimated GFR 82; Glucose 119 mg/dL (80-115); Magnesium 1.9 mg/dL (1.6-2.6); Potassium 3.3 mmol/L (3.5-5.1); Sodium 142 mmol/L (136-145)
[2023-07-13] MEDS: Mometasone/Formoterol 200/5 60 PUFF INH SCH (07:24)
[2023-07-13] MEDS: Ipratropium/Albuterol 3 ML NEB NEB SCH (07:24)
[2023-07-13] MEDS ORDERED: Potassium Chloride 20 MEQ TAB PO SCH (08:00)
[2023-07-13] MEDS: Metoprolol Tartrate 50 MG TAB PO SCH (08:16)
[2023-07-13] MEDS: Apixaban 5 MG TAB PO SCH (08:17)
[2023-07-13] MEDS: Empagliflozin 10 MG TAB PO SCH (08:17)
[2023-07-13] MEDS: Famotidine 20 MG TAB PO SCH (08:17)
[2023-07-13] MEDS: methylPREDNISolone Sod Succ 40 MG VIAL IVP SCH (08:17)
[2023-07-13 11:08] VITALS: TEMP 99.1
== END 2023-07-13 12:25 | disposition home or self-care (01) | DRG 193 ==
LOC: ERS 02:27 → ERHOLD 05:18 → IMCU/EMU 13:15
PROVIDERS: ADMIT Student in an Organized Health Care Education/Training Program; ATTEND Internal Medicine
PROC: 4A043R1 Measurement of Venous Saturation, Peripheral, Percutaneous Approach (ICD-10-PCS; principal; 2023-07-09)
PROC: 5A0935A Assistance with Respiratory Ventilation, Less than 24 Consecutive Hours, High Flow/Velocity Cannula (ICD-10-PCS; 2023-07-09)
PROC: 5A09357 Assistance with Respiratory Ventilation, Less than 24 Consecutive Hours, Continuous Positive Airway Pressure (ICD-10-PCS; 2023-07-10)
DX: J18.9 Pneumonia, unspecified organism (principal); I50.33 Acute on chronic diastolic (congestive) heart failure; J96.01 Acute respiratory failure with hypoxia; J44.1 Chronic obstructive pulmonary disease with (acute) exacerbation; E11.9 Type 2 diabetes mellitus without complications; K21.9 Gastro-esophageal reflux disease without esophagitis; I48.0 Paroxysmal atrial fibrillation; E66.9 Obesity, unspecified; D64.9 Anemia, unspecified; G47.33 Obstructive sleep apnea (adult) (pediatric); Z85.07 Personal history of malignant neoplasm of pancreas; Z92.3 Personal history of irradiation; Z92.21 Personal history of antineoplastic chemotherapy; Z11.52 Encounter for screening for COVID-19; Z79.899 Other long term (current) drug therapy; Z68.36 Body mass index [BMI] 36.0-36.9, adult; Z87.891 Personal history of nicotine dependence
CPT/HCPCS: 36415; 36416; 71275; 80048; 82728; 82805; 83036; 83540; 83550; 83605; 83735; 84145; 84443; 84484; 85025; 86850; 86900; 86901; 87040; 87077; 87081; 87086; 87186; 87449; 87899; 93005; 93798; 93970; 94640; 94660; 94664; 94760; 96365; 96366; 96375; 97139; J0692; J1815; J1940; J1956; J2543; J2920; J2930; J3370-JW; J3490; J7620; Q9967

== ENCOUNTER 2023-08-24 11:38 | Emergency (ER) | payer OTHER ==
[2023-08-24 12:11] LABS: #Eosinphils 0.2 thou/uL (0.0-0.7); #Monocytes 0.7 thou/uL (0.11-0.59); #Neutrophils 7.9 thou/uL (1.40-6.50); %Basophils 0.4 % (0.0-1.0); %Eosinophils 2.1 % (0.0-10.0); %Lymphocytes 17.3 % (21.0-51.0); %Monocytes 6.6 % (0.0-10.0); %Neutrophils 73.1 % (42.0-75.0); Hematocrit 27.7 % (36.0-47.0); Hemoglobin 6.9 g/dL (12.0-16.0); Mean Corpuscular Hemoglobin 18.1 pg (27.0-31.0); Mean Corpuscular Volume 72.5 fl (78.0-98.0); Mean Platelet Volume 10.5 fL (7.4-10.4); Platelet Count 263 10x3/uL (130-400); RBC Distribution Width 21.8 % (11.5-14.5); Red Blood Cell (RBC) Count 3.82 mill/uL (4.20-5.40); White Blood Cell (WBC) Count 10.8 10x3/uL (4.8-10.8)
[2023-08-24 12:15] LABS: Mean Corpuscular HGB CONC 24.9 g/dL (32.0-36.0)
[2023-08-24 12:27] LABS: ALT (SGPT) 16 U/L (8-55); AST (SGOT) 11 U/L (5-34); Albumin 3.6 g/dL (3.4-4.8); Alkaline Phosphatase 93 U/L (40-110); Anion Gap 13 mmol/L (10-20); BUN (Urea Nitrogen) 14 mg/dL (9.8-20.1); Bilirubin, Total 0.7 mg/dL (0.2-1.2); Calc. Creatinine Clearance 0 mL/min (70-130); Calcium 8.9 mg/dL (7.8-10.44); Carbon Dioxide 26 mmol/L (23-31); Chloride 102 mmol/L (98-107); Estimated GFR 76; Globulin 2.8 g/dL (2.4-3.5); Glucose 117 mg/dL (80-115); Potassium 4.2 mmol/L (3.5-5.1); Protein, Total 6.4 g/dL (5.8-8.1); Sodium 137 mmol/L (136-145)
[2023-08-24 12:32] LABS: Troponin I Less than 0.010 ng/mL (< 0.028)
[2023-08-24 12:53] LABS: Anisocytosis SLIGHT = 6-15 cells HPF (0-5); CellaVision Operator ID LAB.MJL; Hypochromia SLIGHT = 6-15 cells HPF (0-5); Microcytosis SLIGHT = 6-15 cells HPF (0-5); Ovalocytes SLIGHT = 2-5 cells HPF (0-1); Platelet Adequacy Comment Platelets Normal; Poikilocytosis SLIGHT = 6-15 cells HPF (0-5); Polychromasia MODERATE = 3-4 cells HPF (0-2); Stomatocytes SLIGHT = 2-5 cells HPF (0-1); Target Cells SLIGHT = 2-5 cells HPF (0-1)
== END 2023-08-24 16:42 | disposition home or self-care (01) ==
LOC: ERS 11:38
DX: K92.2 Gastrointestinal hemorrhage, unspecified (principal); I48.91 Unspecified atrial fibrillation; E11.9 Type 2 diabetes mellitus without complications; K21.9 Gastro-esophageal reflux disease without esophagitis; J44.9 Chronic obstructive pulmonary disease, unspecified; I50.9 Heart failure, unspecified; Z79.84 Long term (current) use of oral hypoglycemic drugs; Z79.01 Long term (current) use of anticoagulants; Z79.899 Other long term (current) drug therapy; Z87.891 Personal history of nicotine dependence
CPT/HCPCS: 36430; 71045; 80053; 83880; 84484; 85025; 86850; 86900; 86901; 93005; 94760; P9016

== ENCOUNTER 2023-09-21 10:16 | Outpatient (CLI) | payer MEDICARE | END 2023-09-21 10:17 | disposition home or self-care (01) | LOC: RAD 10:16 | PROVIDERS: ATTEND Internal Medicine Critical Care Medicine | DX: R06.00 Dyspnea, unspecified (principal); J90 Pleural effusion, not elsewhere classified | CPT/HCPCS: 71046 ==

== ENCOUNTER 2023-09-21 12:09 | Inpatient (IN) | payer MEDICARE ==
[2023-09-21 13:02] LABS: #Basophils 0.1 thou/uL (0.0-0.2); #Eosinphils 0.2 thou/uL (0.0-0.7); #Monocytes 0.6 thou/uL (0.11-0.59); #Neutrophils 8.6 thou/uL (1.40-6.50); %Basophils 0.7 % (0.0-1.0); %Eosinophils 1.3 % (0.0-10.0); %Lymphocytes 17.1 % (21.0-51.0); %Monocytes 4.8 % (0.0-10.0); %Neutrophils 75.5 % (42.0-75.0); Hematocrit 29.5 % (36.0-47.0); Hemoglobin 7.4 g/dL (12.0-16.0); Mean Corpuscular HGB CONC 25.1 g/dL (32.0-36.0); Mean Corpuscular Hemoglobin 18.3 pg (27.0-31.0); Mean Platelet Volume 10.3 fL (7.4-10.4); Platelet Count 218 10x3/uL (130-400); RBC Distribution Width 21.1 % (11.5-14.5); Red Blood Cell (RBC) Count 4.04 mill/uL (4.20-5.40); White Blood Cell (WBC) Count 11.4 10x3/uL (4.8-10.8)
[2023-09-21] MEDS ORDERED: methylPREDNISolone Sod Succ/PF 125 MG/2 ML VIAL ONE (13:09)
[2023-09-21] MEDS ORDERED: Furosemide 40 MG (4 mL) VIAL ONE (13:09)
[2023-09-21 13:24] LABS: ALT (SGPT) 19 U/L (8-55); AST (SGOT) 23 U/L (5-34); Albumin 3.7 g/dL (3.4-4.8); Alkaline Phosphatase 97 U/L (40-110); Anion Gap 15 mmol/L (10-20); BUN (Urea Nitrogen) 21 mg/dL (9.8-20.1); Bilirubin, Total 0.8 mg/dL (0.2-1.2); Calc. Creatinine Clearance 0 mL/min (70-130); Calcium 9.2 mg/dL (7.8-10.44); Carbon Dioxide 27 mmol/L (23-31); Chloride 102 mmol/L (98-107); Estimated GFR 61; Glucose 117 mg/dL (80-115); Potassium 4.5 mmol/L (3.5-5.1); Protein, Total 6.7 g/dL (5.8-8.1); Sodium 139 mmol/L (136-145)
[2023-09-21] MEDS ORDERED: Ipratropium/Albuterol 3 ML NEB ONE (13:30)
[2023-09-21 13:32] LABS: Anisocytosis SLIGHT = 6-15 cells HPF (0-5); CellaVision Operator ID LAB.MJL; Hypochromia SLIGHT = 6-15 cells HPF (0-5); Microcytosis SLIGHT = 6-15 cells HPF (0-5); Ovalocytes SLIGHT = 2-5 cells HPF (0-1); Platelet Adequacy Comment Platelets Normal; Poikilocytosis SLIGHT = 6-15 cells HPF (0-5); Polychromasia MODERATE = 3-4 cells HPF (0-2); Stomatocytes SLIGHT = 2-5 cells HPF (0-1); Tear Drops SLIGHT = 2-5 cells HPF (0-1)
[2023-09-21 13:35] LABS: Troponin I Less than 0.010 ng/mL (< 0.028)
[2023-09-21] MEDS ORDERED: Ipratropium Bromide 2.5 ml Neb ONE (14:36)
[2023-09-21] MEDS ORDERED: Albuterol 2.5 MG (3 mL) NEB ONE (14:36)
[2023-09-21 15:17] LABS: Actual Bicarbonate (HCO3v) 25.6 mEq/L (22-28); Analyzer IN Cardio ER; Base Excess -1.9 mEq/L (-2.0 to +3.0); Calcium, Ionized (venous) 1.11 mmol/L (1.16-1.32); Chloride (VBG) 102 mmol/L (98-106); Hematocrit-VBG 27 % (36.0-47.0); Hemoglobin (Hb) 9.1 g/dL (11.7-16.1); Potassium (VBG) 4.36 mmol/L (3.70-5.30); Sodium 135 mmol/L (133-146); pH (venous) 7.256 (7.32-7.43)
[2023-09-21] MEDS ORDERED: Ondansetron PF 4 MG/2 ML Vial IVP PRN (16:19)
[2023-09-21] MEDS ORDERED: HumaLOG 300 UNITS/3 ML VIAL SC PRN ×2 (16:56)
[2023-09-21] MEDS ORDERED: Dextrose 5% in Water 1,000 ML IV PRN (16:56)
[2023-09-21] MEDS ORDERED: Glucagon 1 MG/ML KIT IM PRN (16:56)
[2023-09-21] MEDS ORDERED: Dextrose 50% Abboject 50 ML SYRINGE SLOW IVP PRN (16:56)
[2023-09-21] MEDS ORDERED: methylPREDNISolone Sod Succ 40 MG VIAL IVP SCH (18:00)
[2023-09-21] MEDS: Ipratropium/Albuterol 3 ML NEB NEB SCH (19:02)
[2023-09-21] MEDS: Mometasone 100 MCG HFA INHALER (RT USE) INH SCH (19:08)
[2023-09-21] MEDS: Azithromycin 500 MG in Sodium Chloride 0.9% 250 ML 250 ML IVPB SCH ×2 (21:37→21:48)
[2023-09-21] MEDS: Apixaban 5 MG TAB PO SCH (21:37)
[2023-09-21] MEDS: Famotidine 20 MG TAB PO SCH (21:37)
[2023-09-21] MEDS: Metoprolol Tartrate 50 MG TAB PO SCH (21:38)
[2023-09-21] MEDS: DULoxetine 60 MG CAP PO SCH (21:38)
[2023-09-22 04:32] LABS: #Monocytes 0.4 thou/uL (0.11-0.59); #Neutrophils 5.8 thou/uL (1.40-6.50); %Basophils 0.3 % (0.0-1.0); %Lymphocytes 17.5 % (21.0-51.0); %Monocytes 5.1 % (0.0-10.0); %Neutrophils 75.9 % (42.0-75.0); Hematocrit 27.8 % (36.0-47.0); Hemoglobin 6.9 g/dL (12.0-16.0); Mean Corpuscular Hemoglobin 18.3 pg (27.0-31.0); Mean Corpuscular Volume 73.5 fl (78.0-98.0); Mean Platelet Volume 10.1 fL (7.4-10.4); Platelet Count 179 10x3/uL (130-400); RBC Distribution Width 20.8 % (11.5-14.5); Red Blood Cell (RBC) Count 3.78 mill/uL (4.20-5.40); White Blood Cell (WBC) Count 7.6 10x3/uL (4.8-10.8)
[2023-09-22 04:34] LABS: Mean Corpuscular HGB CONC 24.8 g/dL (32.0-36.0)
[2023-09-22 04:47] LABS: Anion Gap 14 mmol/L (10-20); BUN (Urea Nitrogen) 20 mg/dL (9.8-20.1); Calc. Creatinine Clearance 113 mL/min (70-130); Calcium 8.9 mg/dL (7.8-10.44); Carbon Dioxide 25 mmol/L (23-31); Chloride 103 mmol/L (98-107); Estimated GFR 75; Glucose 98 mg/dL (80-115); Potassium 4.4 mmol/L (3.5-5.1); Sodium 138 mmol/L (136-145)
[2023-09-22] MEDS ORDERED: methylPREDNISolone Sod Succ 40 MG VIAL IVP SCH (06:00)
[2023-09-22] MEDS ORDERED: Furosemide 40 MG (4 mL) VIAL SLOW IVP SCH (06:00)
[2023-09-22 06:53] LABS: Actual Bicarbonate (HCO3a) 27.3 mEq/L (22-28); Base Excess (BEa) 1.6 mEq/L (-2.0 to +3.0); CO2 Tension 48.9 mmHg (35.0-45.0); Calcium, Ionized (arterial) 1.16 mmol/L (1.12-1.30); Carboxyhemoglobin (COHb) 2.1 gm% (0.0-3.0); Hematocrit-ABG 23 % (36.0-47.0); Hemoglobin (Hb) 7.7 g/dL (12.0-16.0); O2 Tension (PaO2), arterial 63.6 mmHg (> 80.0); Potassium - ABG Lab 4.22 mmol/L (3.70-5.30); pH, Arterial 7.364 (7.35-7.45)
[2023-09-22 06:55] LABS: ALV-art Gradient 231.775 mmHg (0-20); Puncture Site RRA
[2023-09-22] MEDS: Furosemide 40 MG (4 mL) VIAL IVP SCH (07:16)
[2023-09-22] MEDS ORDERED: Apixaban 5 MG TAB PO SCH (09:39)
[2023-09-22] MEDS: Apixaban 2.5 MG TAB PO SCH (11:02)
[2023-09-22] MEDS: Furosemide 100 MG (10 mL) VIAL SLOW IVP SCH (15:42)
[2023-09-22] MEDS: Empagliflozin 10 MG TAB PO SCH (15:43)
[2023-09-22] MEDS: Potassium Chloride 20 MEQ TAB PO SCH (16:32)
[2023-09-22 16:41] LABS: Iron 8 ug/dL (50-170); Iron Binding Capacity, Total 531 mcg/dL (265-497)
[2023-09-22 17:07] LABS: Hematocrit 34.6 % (36.0-47.0); Hemoglobin 9.1 g/dL (12.0-16.0); Platelet Count 223 10x3/uL (130-400)
[2023-09-22] MEDS: Azithromycin 500 MG in Sodium Chloride 0.9% 250 ML 250 ML IVPB SCH (21:43)
[2023-09-23 04:02] LABS: #Basophils 0.1 thou/uL (0.0-0.2); #Eosinphils 0.2 thou/uL (0.0-0.7); #Monocytes 0.9 thou/uL (0.11-0.59); #Neutrophils 6.8 thou/uL (1.40-6.50); %Basophils 0.5 % (0.0-1.0); %Lymphocytes 19.9 % (21.0-51.0); %Monocytes 8.6 % (0.0-10.0); %Neutrophils 68.6 % (42.0-75.0); Hematocrit 30.6 % (36.0-47.0); Hemoglobin 8.1 g/dL (12.0-16.0); Mean Corpuscular HGB CONC 26.5 g/dL (32.0-36.0); Mean Corpuscular Volume 71.8 fl (78.0-98.0); Platelet Count 176 10x3/uL (130-400); RBC Distribution Width 20.1 % (11.5-14.5); Red Blood Cell (RBC) Count 4.26 mill/uL (4.20-5.40); White Blood Cell (WBC) Count 9.9 10x3/uL (4.8-10.8)
[2023-09-23 04:21] LABS: Anion Gap 13 mmol/L (10-20); BUN (Urea Nitrogen) 20 mg/dL (9.8-20.1); Calc. Creatinine Clearance 115 mL/min (70-130); Calcium 9.1 mg/dL (7.8-10.44); Carbon Dioxide 34 mmol/L (23-31); Chloride 99 mmol/L (98-107); Estimated GFR 76; Glucose 104 mg/dL (80-115); Potassium 3.8 mmol/L (3.5-5.1); Sodium 142 mmol/L (136-145)
[2023-09-23 05:07] LABS: Anisocytosis MODERATE=16-30 cells HPF (0-5); CellaVision Operator ID lab.sh2; Hypochromia MODERATE=16-30 cells HPF (0-5); Microcytosis SLIGHT = 6-15 cells HPF (0-5); Ovalocytes SLIGHT = 2-5 cells HPF (0-1); Platelet Adequacy Comment Platelets Normal; Polychromasia MODERATE = 3-4 cells HPF (0-2); Stomatocytes SLIGHT = 2-5 cells HPF (0-1)
[2023-09-23] MEDS: Empagliflozin 10 MG TAB PO SCH (08:48)
[2023-09-23] MEDS: Potassium Chloride 20 MEQ TAB PO SCH ×2 (08:48→16:09)
[2023-09-23] MEDS: Pantoprazole 40 MG VIAL IVP SCH (08:49)
[2023-09-23 09:02] LABS: Magnesium 1.3 mg/dL (1.6-2.6)
[2023-09-23] MEDS: dilTIAZem 25 MG/5 ML VIAL SLOW IVP SCH (09:03)
[2023-09-23] MEDS: dilTIAZem 25 MG/5 ML VIAL ONE ×3 (09:19→09:37)
[2023-09-23] MEDS: Magnesium Sulfate 3 GM in Sodium Chloride 0.9% 100 ML IVPB SCH (09:21)
[2023-09-23] MEDS: dilTIAZem 125 MG in Sodium Chloride 0.9% 100 ML IVPB SCH (09:22)
[2023-09-23] MEDS: Metoprolol Tartrate 5 MG (5 mL) VIAL ONE (09:43)
[2023-09-23] MEDS: Digoxin 0.5 MG/2 ML AMP SLOW IVP SCH (10:11)
[2023-09-23 10:47] LABS: Bacteria/HPF 2+ HPF (None Seen); Bilirubin Negative (Negative); Blood, Urine Negative (Negative); CAUTI Indications for Culture Dysuria,urgency,freq; Clarity Clear (Clear); Glucose, Urine (Dipstick) 150 mg/dL (Negative); Ketone, Urine Negative (Negative); Leukocyte 500 Leu/uL (Negative); Nitrite Negative (Negative); Protein, Urine (Dipstick) Negative (Neg-Trace); RBC/HPF 0-3 HPF (0-3); Specific Gravity, Urine 1.006 (1.002-1.036); Squamous Epithelial 0-3 HPF (0-3); Urobilinogen Normal mg/dL (Less than 2); pH, Urine 6.5 (5.0-9.0)
[2023-09-23 10:48] LABS: Urine Culture Reflex Yes Yes
[2023-09-23] MEDS: Amiodarone 150 MG in Dextrose 5% in Water 100 ML IVPB SCH (12:28)
[2023-09-23] MEDS: Amiodarone 450 MG in Dextrose 5% in Water 250 ML IVPB SCH (12:28)
[2023-09-23] MEDS: Iron, Sodium Ferric Gluconate 125 MG in Sodium Chloride 0.9% 100 ML IVPB SCH (12:29)
[2023-09-23] MEDS: Metoprolol Tartrate 5 MG (5 mL) VIAL IVP SCH (16:04)
[2023-09-23] MEDS: PROPOFOL 20 ML ONE (17:05)
[2023-09-23] MEDS: Magnesium 2 GM/50 ML(in water) 2 GM in Premix 1 BAG IVPB SCH (21:08)
[2023-09-24 04:08] LABS: #Eosinphils 0.4 thou/uL (0.0-0.7); #Monocytes 0.9 thou/uL (0.11-0.59); %Basophils 0.3 % (0.0-1.0); %Eosinophils 3.6 % (0.0-10.0); %Lymphocytes 16.2 % (21.0-51.0); %Monocytes 8.9 % (0.0-10.0); %Neutrophils 70.7 % (42.0-75.0); Hematocrit 32.1 % (36.0-47.0); Hemoglobin 8.5 g/dL (12.0-16.0); Mean Corpuscular HGB CONC 26.5 g/dL (32.0-36.0); Mean Corpuscular Hemoglobin 19.1 pg (27.0-31.0); Mean Corpuscular Volume 72.1 fl (78.0-98.0); Platelet Count 166 10x3/uL (130-400); RBC Distribution Width 20.1 % (11.5-14.5); Red Blood Cell (RBC) Count 4.45 mill/uL (4.20-5.40); White Blood Cell (WBC) Count 9.9 10x3/uL (4.8-10.8)
[2023-09-24 04:33] LABS: Anion Gap 12 mmol/L (10-20); BUN (Urea Nitrogen) 13 mg/dL (9.8-20.1); Calc. Creatinine Clearance 132 mL/min (70-130); Calcium 9.3 mg/dL (7.8-10.44); Carbon Dioxide 36 mmol/L (23-31); Chloride 94 mmol/L (98-107); Estimated GFR 91; Glucose 113 mg/dL (80-115); Magnesium 1.9 mg/dL (1.6-2.6); Potassium 3.7 mmol/L (3.5-5.1); Sodium 138 mmol/L (136-145)
[2023-09-24] MEDS: Furosemide 100 MG (10 mL) VIAL SLOW IVP SCH (07:16)
[2023-09-24] MEDS ORDERED: Iron Sucrose Complex 100 MG in Sodium Chloride 0.9% 100 ML IVPB SCH (09:00)
[2023-09-24] MEDS: Magnesium Sulfate 3 GM in Sodium Chloride 0.9% 100 ML IVPB SCH (10:02)
[2023-09-24] MEDS: Potassium Chloride 20 MEQ TAB PO SCH (12:14)
[2023-09-25] MEDS: Metoprolol Tartrate 5 MG (5 mL) VIAL IVP SCH (05:28)
[2023-09-25 07:20] LABS: #Basophils 0.1 thou/uL (0.0-0.2); #Eosinphils 0.4 thou/uL (0.0-0.7); #Neutrophils 8.4 thou/uL (1.40-6.50); %Basophils 0.7 % (0.0-1.0); %Eosinophils 3.8 % (0.0-10.0); %Lymphocytes 13.2 % (21.0-51.0); %Monocytes 8.4 % (0.0-10.0); %Neutrophils 73.5 % (42.0-75.0); Hematocrit 37.2 % (36.0-47.0); Hemoglobin 9.4 g/dL (12.0-16.0); Mean Corpuscular HGB CONC 25.3 g/dL (32.0-36.0); Mean Corpuscular Hemoglobin 18.7 pg (27.0-31.0); Mean Corpuscular Volume 74.1 fl (78.0-98.0); Platelet Count 180 10x3/uL (130-400); RBC Distribution Width 20.7 % (11.5-14.5); Red Blood Cell (RBC) Count 5.02 mill/uL (4.20-5.40); White Blood Cell (WBC) Count 11.4 10x3/uL (4.8-10.8)
[2023-09-25 07:44] LABS: Anion Gap 12 mmol/L (10-20); BUN (Urea Nitrogen) 11 mg/dL (9.8-20.1); Calc. Creatinine Clearance 112 mL/min (70-130); Calcium 9.5 mg/dL (7.8-10.44); Carbon Dioxide 36 mmol/L (23-31); Chloride 94 mmol/L (98-107); Estimated GFR 82; Glucose 149 mg/dL (80-115); Magnesium 1.9 mg/dL (1.6-2.6); Potassium 3.9 mmol/L (3.5-5.1); Sodium 138 mmol/L (136-145)
[2023-09-25 08:17] LABS: CellaVision Operator ID LAB.KW3; Hypochromia SLIGHT = 6-15 cells HPF (0-5); Platelet Adequacy Comment Platelets Normal; Poikilocytosis SLIGHT = 6-15 cells HPF (0-5); Polychromasia SLIGHT = 2-3 cells HPF (0-2)
[2023-09-25] MEDS: Amiodarone 200 MG TAB PO SCH (08:37)
[2023-09-25] MEDS: cefTRIAXone\\ROCEPHIN 2 GM in Sodium Chloride 0.9% 100 ML IVPB SCH (09:52)
[2023-09-25] MEDS: Enoxaparin 100 MG (1 mL) SYRINGE SC SCH (09:52)
[2023-09-25] MEDS: Digoxin 0.5 MG/2 ML AMP SLOW IVP SCH ×2 (09:52→15:16)
[2023-09-25] MEDS: dilTIAZem 30 MG TAB PO SCH (13:23)
[2023-09-25] MEDS: Furosemide 20 MG (2 mL) VIAL SLOW IVP SCH (13:23)
[2023-09-26 06:18] LABS: Hematocrit 35.5 % (36.0-47.0); Hemoglobin 9.1 g/dL (12.0-16.0); Manual Diff?? YES; Mean Corpuscular HGB CONC 25.6 g/dL (32.0-36.0); Mean Corpuscular Hemoglobin 19.2 pg (27.0-31.0); Mean Corpuscular Volume 74.9 fl (78.0-98.0); Platelet Count 161 10x3/uL (130-400); RBC Distribution Width 21.2 % (11.5-14.5); Red Blood Cell (RBC) Count 4.74 mill/uL (4.20-5.40); White Blood Cell (WBC) Count 9.8 10x3/uL (4.8-10.8)
[2023-09-26 06:20] LABS: Delete Auto Diff?? YES
[2023-09-26 06:37] LABS: Anion Gap 15 mmol/L (10-20); BUN (Urea Nitrogen) 13 mg/dL (9.8-20.1); Calc. Creatinine Clearance 108 mL/min (70-130); Calcium 9.2 mg/dL (7.8-10.44); Carbon Dioxide 34 mmol/L (23-31); Chloride 95 mmol/L (98-107); Estimated GFR 78; Glucose 127 mg/dL (80-115); Potassium 4.2 mmol/L (3.5-5.1); Sodium 140 mmol/L (136-145)
[2023-09-26 06:52] LABS: Band 5 % (5-11); CellaVision Operator ID LAB.CLH1; Eosinophils 1 % (0-10); Hypochromia SLIGHT = 6-15 cells HPF (0-5); Large Platelets 13.9 % (0-5); Lymphocytes 9 % (21-51); Microcytosis SLIGHT = 6-15 cells HPF (0-5); Monocytes 5 % (0-10); Neutrophil 73 % (42-75); Platelet Adequacy Comment Platelets Normal; Polychromasia MODERATE = 3-4 cells HPF (0-2); Reactive Lymphocytes 5 % (0-10); Stomatocytes SLIGHT = 2-5 cells HPF (0-1); Total Cell Count 101
[2023-09-27 03:47] LABS: #Eosinphils 0.3 thou/uL (0.0-0.7); #Monocytes 0.7 thou/uL (0.11-0.59); #Neutrophils 5.8 thou/uL (1.40-6.50); %Basophils 0.5 % (0.0-1.0); %Eosinophils 3.7 % (0.0-10.0); %Lymphocytes 16.4 % (21.0-51.0); %Monocytes 8.3 % (0.0-10.0); %Neutrophils 70.7 % (42.0-75.0); Hemoglobin 8.8 g/dL (12.0-16.0); Mean Corpuscular HGB CONC 25.9 g/dL (32.0-36.0); Mean Corpuscular Hemoglobin 19.5 pg (27.0-31.0); Mean Corpuscular Volume 75.2 fl (78.0-98.0); Platelet Count 157 10x3/uL (130-400); RBC Distribution Width 21.7 % (11.5-14.5); Red Blood Cell (RBC) Count 4.52 mill/uL (4.20-5.40); White Blood Cell (WBC) Count 8.2 10x3/uL (4.8-10.8)
[2023-09-27 04:04] LABS: Anion Gap 13 mmol/L (10-20); BUN (Urea Nitrogen) 14 mg/dL (9.8-20.1); Calc. Creatinine Clearance 111 mL/min (70-130); Calcium 9.2 mg/dL (7.8-10.44); Carbon Dioxide 34 mmol/L (23-31); Chloride 95 mmol/L (98-107); Estimated GFR 81; Glucose 142 mg/dL (80-115); Sodium 138 mmol/L (136-145)
[2023-09-27] MEDS: Ondansetron PF 4 MG/2 ML Vial IVP PRN (16:46)
[2023-09-28 06:41] LABS: #Eosinphils 0.2 thou/uL (0.0-0.7); #Monocytes 0.7 thou/uL (0.11-0.59); %Basophils 0.4 % (0.0-1.0); %Eosinophils 3.3 % (0.0-10.0); %Lymphocytes 12.7 % (21.0-51.0); Hematocrit 33.9 % (36.0-47.0); Hemoglobin 8.9 g/dL (12.0-16.0); Mean Corpuscular HGB CONC 26.3 g/dL (32.0-36.0); Mean Corpuscular Volume 76.4 fl (78.0-98.0); Platelet Count 166 10x3/uL (130-400); RBC Distribution Width 22.2 % (11.5-14.5); Red Blood Cell (RBC) Count 4.44 mill/uL (4.20-5.40); White Blood Cell (WBC) Count 6.9 10x3/uL (4.8-10.8)
[2023-09-28 06:56] LABS: Anion Gap 15 mmol/L (10-20); BUN (Urea Nitrogen) 10 mg/dL (9.8-20.1); Calc. Creatinine Clearance 113 mL/min (70-130); Calcium 8.9 mg/dL (7.8-10.44); Carbon Dioxide 32 mmol/L (23-31); Chloride 93 mmol/L (98-107); Estimated GFR 83; Glucose 130 mg/dL (80-115); Potassium 3.6 mmol/L (3.5-5.1); Sodium 136 mmol/L (136-145)
[2023-09-28 13:57] VITALS: BMI 33.7
[2023-09-28] MEDS: Zolpidem Tartrate 5 MG TAB PO SCH ×2 (20:59→22:17)
[2023-09-29 06:14] LABS: Anion Gap 13 mmol/L (10-20); BUN (Urea Nitrogen) 11 mg/dL (9.8-20.1); Calc. Creatinine Clearance 114 mL/min (70-130); Calcium 9.6 mg/dL (7.8-10.44); Carbon Dioxide 34 mmol/L (23-31); Chloride 95 mmol/L (98-107); Estimated GFR 84; Glucose 153 mg/dL (80-115); Potassium 3.5 mmol/L (3.5-5.1); Sodium 138 mmol/L (136-145)
[2023-09-29 06:33] LABS: Hematocrit 34.6 % (36.0-47.0); Hemoglobin 8.9 g/dL (12.0-16.0); Mean Corpuscular HGB CONC 25.7 g/dL (32.0-36.0); Mean Corpuscular Volume 77.6 fl (78.0-98.0); Platelet Count 185 10x3/uL (130-400); Red Blood Cell (RBC) Count 4.46 mill/uL (4.20-5.40); White Blood Cell (WBC) Count 7.5 10x3/uL (4.8-10.8)
[2023-09-29 07:55] LABS: #Eosinphils 0.2 thou/uL (0.0-0.7); #Monocytes 0.9 thou/uL (0.11-0.59); #Neutrophils 5.2 thou/uL (1.40-6.50); %Basophils 0.5 % (0.0-1.0); %Eosinophils 2.4 % (0.0-10.0); %Monocytes 12.3 % (0.0-10.0); %Neutrophils 69.1 % (42.0-75.0); Hypochromia MODERATE=16-30 cells HPF (0-5); Platelet Adequacy Comment Platelets Normal; Polychromasia SLIGHT = 2-3 cells HPF (0-2)
[2023-09-29 13:10] VITALS: BP 151/85
[2023-09-29 14:45] VITALS: TEMP 97.9
[2023-09-29] MEDS ORDERED: Zolpidem Tartrate 5 MG TAB PO SCH (21:00)
== END 2023-09-29 15:49 | disposition home or self-care (01) | DRG 291 ==
LOC: ERS 12:09 → IMCU/EMU 16:17
PROVIDERS: ADMIT Internal Medicine; ATTEND Family Medicine
PROC: 30243N1 Transfusion of Nonautologous Red Blood Cells into Central Vein, Percutaneous Approach (ICD-10-PCS; 2023-09-22)
PROC: 5A2204Z Restoration of Cardiac Rhythm, Single (ICD-10-PCS; principal; 2023-09-23)
DX: I11.0 Hypertensive heart disease with heart failure (principal); I50.33 Acute on chronic diastolic (congestive) heart failure; J96.21 Acute and chronic respiratory failure with hypoxia; E87.3 Alkalosis; I48.92 Unspecified atrial flutter; K92.2 Gastrointestinal hemorrhage, unspecified; N39.0 Urinary tract infection, site not specified; J98.11 Atelectasis; E11.9 Type 2 diabetes mellitus without complications; K21.9 Gastro-esophageal reflux disease without esophagitis; J44.9 Chronic obstructive pulmonary disease, unspecified; F32.A Depression, unspecified; G47.33 Obstructive sleep apnea (adult) (pediatric); E66.9 Obesity, unspecified; I48.0 Paroxysmal atrial fibrillation; B96.20 Unspecified Escherichia coli [E. coli] as the cause of diseases classified elsewhere; B96.1 Klebsiella pneumoniae [K. pneumoniae] as the cause of diseases classified elsewhere; D50.9 Iron deficiency anemia, unspecified; Z79.01 Long term (current) use of anticoagulants; Z90.49 Acquired absence of other specified parts of digestive tract; Z87.891 Personal history of nicotine dependence; Z79.84 Long term (current) use of oral hypoglycemic drugs; Z85.07 Personal history of malignant neoplasm of pancreas; Z92.21 Personal history of antineoplastic chemotherapy
CPT/HCPCS: 36415; 36416; 36430; 36600; 71045; 80048; 80053; 81001; 82728; 82805; 83540; 83550; 83735; 83880; 84484; 85025; 85046; 86850; 86900; 86901; 87040; 87070; 87077; 87086; 87186; 87205; 93005; 93010; 93798; 94640; 94660; 94664; 96374; 96375; C9113; J0282; J0456; J0696; J1160; J1650; J1940; J2405; J2704; J2916; J2930; J3475; J3490; J7050; J7070; J7611; J7620; P9016

== ENCOUNTER 2023-11-17 13:31 | Inpatient (IN) | payer MEDICARE ==
[2023-11-17 14:15] LABS: #Basophils 0.03 10x3/uL (0.0-0.2); #Eosinphils Less than 0.03 10x3/uL (0.0-0.7); %Basophils 0.2 % (0.0-1.0); %Eosinophils 0.1 % (0.0-10.0); %Lymphocytes 13.1 % (21.0-51.0); %Monocytes 1.9 % (0.0-10.0); %Neutrophils 81.8 % (42.0-75.0); Hematocrit 28.8 % (36.0-47.0); Hemoglobin 7.9 g/dL (12.0-16.0); Mean Corpuscular HGB CONC 27.4 g/dL (32.0-36.0); Mean Corpuscular Hemoglobin 22.1 pg (27.0-31.0); Mean Corpuscular Volume 80.7 fL (78.0-98.0); Mean Platelet Volume 11.1 fL (7.4-10.4); Platelet Count 454 10x3/uL (130-400); RBC Distribution Width 21.4 % (11.5-14.5); Red Blood Cell (RBC) Count 3.57 mill/uL (4.20-5.40)
[2023-11-17 14:25] LABS: Troponin I Less than 0.010 ng/mL (< 0.028)
[2023-11-17 14:26] LABS: ALT (SGPT) 14 U/L (8-55); AST (SGOT) 13 U/L (5-34); Albumin 3.7 g/dL (3.4-4.8); Alkaline Phosphatase 71 U/L (40-110); Anion Gap 22 mmol/L (10-20); BUN (Urea Nitrogen) 45 mg/dL (9.8-20.1); Bilirubin, Total 0.4 mg/dL (0.2-1.2); Calc. Creatinine Clearance 0 mL/min (70-130); Calcium 9.8 mg/dL (7.8-10.44); Carbon Dioxide 23 mmol/L (23-31); Chloride 97 mmol/L (98-107); Estimated GFR 33; Globulin 4.1 g/dL (2.4-3.5); Glucose 179 mg/dL (80-115); Potassium 6.1 mmol/L (3.5-5.1); Protein, Total 7.8 g/dL (5.8-8.1); Sodium 136 mmol/L (136-145)
[2023-11-17] MEDS ORDERED: Sodium Chloride 0.9% 100 ML ONE (14:27)
[2023-11-17] MEDS ORDERED: Cefepime 2 GM VIAL ONE (14:27)
[2023-11-17] MEDS ORDERED: Vancomycin (BATCH) 2 GM/500 ML BAG ONE (14:28)
[2023-11-17] MEDS ORDERED: Insulin Regular 300 UNITS/3 ML VIAL ONE (14:37)
[2023-11-17] MEDS ORDERED: CALCIUM GLUC 1 GM (50 ML) BAG ONE (14:37)
[2023-11-17] MEDS ORDERED: LevoFLOXacin 750 mg/D5W 150 ml Premix Bag ONE (14:41)
[2023-11-17 15:03] LABS: Actual Bicarbonate (HCO3a) 23.5 mEq/L (22-28); Analyzer IN Cardio ER; Base Excess (BEa) -2.8 mEq/L (-2.0 to +3.0); CO2 Tension 47.9 mmHg (35.0-45.0); Calcium, Ionized (arterial) 1.17 mmol/L (1.12-1.30); Carboxyhemoglobin (COHb) 1.6 gm% (0.0-3.0); Hematocrit-ABG 24 % (36.0-47.0); Hemoglobin (Hb) 8.2 g/dL (12.0-16.0); Potassium - ABG Lab 5.63 mmol/L (3.70-5.30); pH, Arterial 7.308 (7.35-7.45)
[2023-11-17 15:04] LABS: Puncture Site RBA
[2023-11-17 15:09] LABS: ALV-art Gradient 297.925 mmHg (0-20)
[2023-11-17] MEDS ORDERED: Glucagon 1 MG/ML KIT IM PRN (17:12)
[2023-11-17] MEDS ORDERED: Dextrose 5% in Water 1,000 ML IV PRN (17:12)
[2023-11-17] MEDS ORDERED: Acetaminophen 325 MG TAB PO PRN (17:12)
[2023-11-17] MEDS ORDERED: Dextrose 50% Abboject 50 ML SYRINGE SLOW IVP PRN (17:12)
[2023-11-17] MEDS ORDERED: HumaLOG 300 UNITS/3 ML VIAL SC PRN (17:14)
[2023-11-17 17:39] VITALS: BMI 35.1
[2023-11-17 17:43] LABS: Hematocrit 27.1 % (36.0-47.0); Hemoglobin 7.6 g/dL (12.0-16.0); Mean Corpuscular Hemoglobin 22.7 pg (27.0-31.0); Mean Corpuscular Volume 80.9 fL (78.0-98.0); Mean Platelet Volume 10.3 fL (7.4-10.4); Platelet Count 329 10x3/uL (130-400); RBC Distribution Width 20.6 % (11.5-14.5); Red Blood Cell (RBC) Count 3.35 mill/uL (4.20-5.40)
[2023-11-17 17:44] LABS: #Basophils Less than 0.03 10x3/uL (0.0-0.2); #Eosinphils Less than 0.03 10x3/uL (0.0-0.7); %Basophils 0.2 % (0.0-1.0); %Eosinophils 0.1 % (0.0-10.0); %Lymphocytes 11.9 % (21.0-51.0); %Monocytes 4.1 % (0.0-10.0); %Neutrophils 81.3 % (42.0-75.0)
[2023-11-17 18:02] LABS: Anion Gap 19 mmol/L (10-20); BUN (Urea Nitrogen) 44 mg/dL (9.8-20.1); Calc. Creatinine Clearance 62 mL/min (70-130); Calcium 9.6 mg/dL (7.8-10.44); Carbon Dioxide 24 mmol/L (23-31); Chloride 99 mmol/L (98-107); Estimated GFR 39; Glucose 114 mg/dL (80-115); Iron 10 ug/dL (50-170); Iron Binding Capacity, Total 506 mcg/dL (265-497); Potassium 5.3 mmol/L (3.5-5.1); Sodium 137 mmol/L (136-145)
[2023-11-17] MEDS: Ipratropium/Albuterol 3 ML NEB NEB SCH (18:30)
[2023-11-17] MEDS: Mometasone 100 MCG HFA INHALER (RT USE) INH SCH (18:30)
[2023-11-17] MEDS: Furosemide 40 MG (4 mL) VIAL SLOW IVP SCH (18:34)
[2023-11-17] MEDS: Sodium Ferric Gluconate 250 MG in Sodium Chloride 0.9% 250 ML 250 ML IVPB SCH (19:00)
[2023-11-17 19:03] LABS: Lactic Acid 2.4 mmol/L (0.5-2.2)
[2023-11-17] MEDS: Dextrose 50% Abboject 50 ML SYRINGE SLOW IVP SCH (20:48)
[2023-11-17] MEDS: Gabapentin 300 MG CAP PO SCH (20:48)
[2023-11-17] MEDS: Apixaban 5 MG TAB PO SCH (20:48)
[2023-11-17] MEDS: DULoxetine 60 MG CAP PO SCH (20:48)
[2023-11-17] MEDS: Pantoprazole DR 40 MG TAB PO SCH (20:49)
[2023-11-17 21:46] LABS: Lactic Acid 1.1 mmol/L (0.5-2.2)
[2023-11-17] MEDS ORDERED: Ipratropium/Albuterol 3 ML NEB NEB PRN ×2 (22:33→22:43)
[2023-11-18 02:23] LABS: Legionella Urinary Ag Negative (Negative)
[2023-11-18] MEDS: Ipratropium/Albuterol 3 ML NEB NEB SCH (02:31)
[2023-11-18 02:46] LABS: Influenza A by NAA Not Detected (NotDetected); Influenza B by NAA Not Detected (NotDetected); SARS-CoV-2 NAA Rapid Test DETECTED (NotDetected)
[2023-11-18 06:26] LABS: #Basophils 0.04 10x3/uL (0.0-0.2); %Basophils 0.4 % (0.0-1.0); %Eosinophils 0.8 % (0.0-10.0); %Lymphocytes 13.7 % (21.0-51.0); %Monocytes 11.1 % (0.0-10.0); %Neutrophils 71.8 % (42.0-75.0); Hematocrit 23.6 % (36.0-47.0); Hemoglobin 6.6 g/dL (12.0-16.0); Mean Corpuscular Hemoglobin 22.3 pg (27.0-31.0); Mean Corpuscular Volume 79.7 fL (78.0-98.0); Mean Platelet Volume 10.4 fL (7.4-10.4); Platelet Count 287 10x3/uL (130-400); RBC Distribution Width 20.3 % (11.5-14.5); Red Blood Cell (RBC) Count 2.96 mill/uL (4.20-5.40)
[2023-11-18 06:29] LABS: Anion Gap 15 mmol/L (10-20); BUN (Urea Nitrogen) 36 mg/dL (9.8-20.1); Calc. Creatinine Clearance 76 mL/min (70-130); Calcium 9.1 mg/dL (7.8-10.44); Carbon Dioxide 29 mmol/L (23-31); Chloride 99 mmol/L (98-107); Estimated GFR 51; Glucose 79 mg/dL (80-115); Potassium 4.2 mmol/L (3.5-5.1); Sodium 139 mmol/L (136-145)
[2023-11-18] MEDS ORDERED: Guaifenesin DM 100-10/5 ML UDCUP PO PRN (06:31)
[2023-11-18] MEDS ORDERED: Benzonatate 100 MG CAP PO PRN (06:31)
[2023-11-18] MEDS: Albuterol 200 PUFF (6.7GM INHALER) INH SCH (07:45)
[2023-11-18 08:34] LABS: Strep pneumo Urine Ag NEGATIVE (NEGATIVE)
[2023-11-18] MEDS: Zinc Sulfate 220 MG CAP PO SCH (09:46)
[2023-11-18] MEDS: Cholecalciferol 1,000 UNITS (25 MCG) TAB PO SCH (09:46)
[2023-11-18] MEDS: Pantoprazole DR 40 MG TAB PO SCH (09:47)
[2023-11-18] MEDS: Furosemide 40 MG (4 mL) VIAL SLOW IVP SCH (09:47)
[2023-11-18] MEDS: Dexamethasone 10 MG/ML VIAL SLOW IVP SCH (09:47)
[2023-11-18] MEDS: Doxycycline 100 MG in Sodium Chloride 0.9% 100 ML IVPB SCH (09:47)
[2023-11-18] MEDS: Ascorbic Acid 500 mg Chewable Tablet PO SCH (09:47)
[2023-11-18] MEDS: cefTRIAXone\\ROCEPHIN 1 GM in Sodium Chloride 0.9% 100 ML IVPB SCH (09:48)
[2023-11-19 07:53] LABS: Hematocrit 28.7 % (36.0-47.0); Hemoglobin 8.2 g/dL (12.0-16.0); Mean Corpuscular HGB CONC 28.6 g/dL (32.0-36.0); Mean Corpuscular Hemoglobin 22.8 pg (27.0-31.0); Mean Corpuscular Volume 79.9 fL (78.0-98.0); Mean Platelet Volume 10.2 fL (7.4-10.4); Platelet Count 296 10x3/uL (130-400); RBC Distribution Width 20.1 % (11.5-14.5); Red Blood Cell (RBC) Count 3.59 mill/uL (4.20-5.40)
[2023-11-19 08:04] LABS: Anion Gap 16 mmol/L (10-20); BUN (Urea Nitrogen) 25 mg/dL (9.8-20.1); Calc. Creatinine Clearance 106 mL/min (70-130); Calcium 9.5 mg/dL (7.8-10.44); Carbon Dioxide 33 mmol/L (23-31); Chloride 97 mmol/L (98-107); Estimated GFR 76; Glucose 110 mg/dL (80-115); Potassium 4.2 mmol/L (3.5-5.1); Sodium 142 mmol/L (136-145)
[2023-11-19 08:58] LABS: Lymphocytes 12 % (21-51); Monocytes 11 % (0-10); Neutrophil 75 % (42-75)
[2023-11-19] MEDS ORDERED: BARICITINIB 2 MG TAB PO SCH (09:00)
[2023-11-19 10:09] LABS: Anisocytosis MODERATE=16-30 cells HPF (0-5); Hypochromia MODERATE=16-30 cells HPF (0-5); Platelet Adequacy Comment Platelets Normal; Polychromasia MODERATE = 3-4 cells HPF (0-2); Schistocytes SLIGHT = 2-5 cells HPF (0-1)
[2023-11-19] MEDS: Furosemide 100 MG (10 mL) VIAL SLOW IVP SCH (13:06)
[2023-11-19] MEDS: HumaLOG 300 UNITS/3 ML VIAL SC PRN (13:06)
[2023-11-19] MEDS: Arformoterol 15 MCG/2 ML NEB NEB SCH (18:45)
[2023-11-19] MEDS: Apixaban 2.5 MG TAB PO SCH (21:33)
[2023-11-20 04:29] LABS: #Basophils Less than 0.03 10x3/uL (0.0-0.2); %Basophils 0.1 % (0.0-1.0); %Eosinophils 0.3 % (0.0-10.0); %Lymphocytes 17.6 % (21.0-51.0); %Monocytes 9.5 % (0.0-10.0); %Neutrophils 71.1 % (42.0-75.0); Hematocrit 30.2 % (36.0-47.0); Hemoglobin 8.7 g/dL (12.0-16.0); Mean Corpuscular HGB CONC 28.8 g/dL (32.0-36.0); Mean Corpuscular Hemoglobin 22.9 pg (27.0-31.0); Mean Corpuscular Volume 79.5 fL (78.0-98.0); Mean Platelet Volume 9.9 fL (7.4-10.4); Platelet Count 284 10x3/uL (130-400); RBC Distribution Width 20.1 % (11.5-14.5)
[2023-11-20 04:30] LABS: Anion Gap 15 mmol/L (10-20); BUN (Urea Nitrogen) 24 mg/dL (9.8-20.1); Calc. Creatinine Clearance 98 mL/min (70-130); Calcium 9.4 mg/dL (7.8-10.44); Carbon Dioxide 36 mmol/L (23-31); Chloride 94 mmol/L (98-107); Estimated GFR 69; Glucose 119 mg/dL (80-115); Potassium 3.7 mmol/L (3.5-5.1); Sodium 141 mmol/L (136-145)
[2023-11-20 11:52] VITALS: BP 118/62
[2023-11-20 17:03] LABS: SARS-CoV-2 E Target Negative; SARS-CoV-2 N2 Target Negative; SARS-CoV-2 NAA Rapid Test Not Detected (NotDetected); SARS-CoV-2 RdRP gene Negative
[2023-11-21 05:27] LABS: #Basophils Less than 0.03 10x3/uL (0.0-0.2); #Eosinphils Less than 0.03 10x3/uL (0.0-0.7); %Basophils 0.1 % (0.0-1.0); %Lymphocytes 14.4 % (21.0-51.0); %Monocytes 8.2 % (0.0-10.0); %Neutrophils 76.4 % (42.0-75.0); Hematocrit 36.6 % (36.0-47.0); Hemoglobin 10.6 g/dL (12.0-16.0); Mean Corpuscular Hemoglobin 22.6 pg (27.0-31.0); Platelet Count 279 10x3/uL (130-400); RBC Distribution Width 20.8 % (11.5-14.5); Red Blood Cell (RBC) Count 4.69 mill/uL (4.20-5.40)
[2023-11-21 05:47] LABS: Anion Gap 17 mmol/L (10-20); BUN (Urea Nitrogen) 29 mg/dL (9.8-20.1); Calc. Creatinine Clearance 105 mL/min (70-130); Calcium 9.7 mg/dL (7.8-10.44); Carbon Dioxide 36 mmol/L (23-31); Chloride 91 mmol/L (98-107); Estimated GFR 78; Glucose 128 mg/dL (80-115); Potassium 3.9 mmol/L (3.5-5.1); Sodium 140 mmol/L (136-145)
[2023-11-21 10:30] VITALS: TEMP 97.7
== END 2023-11-21 12:59 | disposition home or self-care (01) | DRG 177 ==
LOC: ERS 13:31 → IMCU/EMU 16:43
PROVIDERS: ADMIT Internal Medicine; ATTEND Hospitalist
PROC: 30233N1 Transfusion of Nonautologous Red Blood Cells into Peripheral Vein, Percutaneous Approach (ICD-10-PCS; principal; 2023-11-18)
DX: U07.1 COVID-19 (principal); I50.33 Acute on chronic diastolic (congestive) heart failure; J96.21 Acute and chronic respiratory failure with hypoxia; J96.22 Acute and chronic respiratory failure with hypercapnia; J12.82 Pneumonia due to coronavirus disease 2019; N17.9 Acute kidney failure, unspecified; J44.0 Chronic obstructive pulmonary disease with (acute) lower respiratory infection; E87.20 Acidosis, unspecified; J44.1 Chronic obstructive pulmonary disease with (acute) exacerbation; D50.9 Iron deficiency anemia, unspecified; I48.0 Paroxysmal atrial fibrillation; E66.01 Morbid (severe) obesity due to excess calories; E11.9 Type 2 diabetes mellitus without complications; I11.0 Hypertensive heart disease with heart failure; I44.0 Atrioventricular block, first degree; E87.5 Hyperkalemia; Z99.81 Dependence on supplemental oxygen; Z79.899 Other long term (current) drug therapy; Z90.710 Acquired absence of both cervix and uterus; Z79.84 Long term (current) use of oral hypoglycemic drugs; Z79.01 Long term (current) use of anticoagulants; Z68.32 Body mass index [BMI] 32.0-32.9, adult; Z90.49 Acquired absence of other specified parts of digestive tract
CPT/HCPCS: 36415; 36416; 36430; 36600; 71045; 80048; 80053; 82728; 82805; 83540; 83550; 83605; 83880; 84145; 84484; 85025; 86141; 86850; 86900; 86901; 87040; 87449; 87899; 93005; 94640; 94660; 94760; J0613; J0692; J0696; J1100; J1815; J1940; J1956; J2916; J3370; J3490; J7050; J7620; J7999; P9016; U0002

== ENCOUNTER 2024-01-01 10:16 | Inpatient (IN) | payer MEDICARE ==
[2024-01-01 10:42] LABS: Actual Bicarbonate (HCO3v) 31.4 mEq/L (22-28); Analyzer IN Cardio ER; Base Excess 4.4 mEq/L (-2.0 to +3.0); Chloride (VBG) 93 mmol/L (98-106); Hematocrit-VBG 34 % (36.0-47.0); Hemoglobin (Hb) 11.4 g/dL (11.7-16.1); Potassium (VBG) 3.78 mmol/L (3.70-5.30); Sodium 137 mmol/L (133-146); pH (venous) 7.347 (7.32-7.43)
[2024-01-01 10:48] LABS: #Basophils 0.07 10x3/uL (0.0-0.2); %Basophils 0.6 % (0.0-1.0); %Eosinophils 1.3 % (0.0-10.0); %Lymphocytes 13.4 % (21.0-51.0); %Monocytes 10.8 % (0.0-10.0); Hematocrit 34.2 % (36.0-47.0); Hemoglobin 10.2 g/dL (12.0-16.0); Mean Corpuscular HGB CONC 29.8 g/dL (32.0-36.0); Mean Corpuscular Hemoglobin 24.1 pg (27.0-31.0); Mean Corpuscular Volume 80.9 fL (78.0-98.0); Mean Platelet Volume 10.8 fL (7.4-10.4); Platelet Count 349 10x3/uL (130-400); RBC Distribution Width 17.9 % (11.5-14.5); Red Blood Cell (RBC) Count 4.23 mill/uL (4.20-5.40)
[2024-01-01 11:08] LABS: ALT (SGPT) 12 U/L (8-55); AST (SGOT) 14 U/L (5-34); Albumin 2.8 g/dL (3.4-4.8); Alkaline Phosphatase 99 U/L (40-110); Anion Gap 20 mmol/L (10-20); BUN (Urea Nitrogen) 19 mg/dL (9.8-20.1); Bilirubin, Total 0.4 mg/dL (0.2-1.2); Calc. Creatinine Clearance 0 mL/min (70-130); Calcium 9.2 mg/dL (7.8-10.44); Carbon Dioxide 27 mmol/L (23-31); Chloride 94 mmol/L (98-107); Estimated GFR 46; Globulin 4.5 g/dL (2.4-3.5); Glucose 198 mg/dL (80-115); Potassium 4.1 mmol/L (3.5-5.1); Protein, Total 7.3 g/dL (5.8-8.1); Sodium 137 mmol/L (136-145)
[2024-01-01 11:10] LABS: Troponin I Less than 0.010 ng/mL (< 0.028)
[2024-01-01] MEDS ORDERED: Furosemide 40 MG (4 mL) VIAL ONE (11:40)
[2024-01-01] MEDS ORDERED: Magnesium 2 GM/50 ML BAG (IN WATER) ONE (11:40)
[2024-01-01] MEDS ORDERED: methylPREDNISolone Sod Succ/PF 125 MG/2 ML VIAL ONE (11:41)
[2024-01-01] MEDS ORDERED: Sodium Chloride 0.9% 100 ML ONE (11:41)
[2024-01-01] MEDS ORDERED: Cefepime 2 GM VIAL ONE (11:41)
[2024-01-01] MEDS ORDERED: Ipratropium/Albuterol 3 ML NEB ONE (11:55)
[2024-01-01] MEDS ORDERED: Aspirin Chewable 81 MG TAB ONE (16:50)
[2024-01-01 17:13] LABS: Lactic Acid 0.5 mmol/L (0.5-2.2)
[2024-01-01] MEDS ORDERED: traMADol HCl 50 MG TAB PO PRN (18:28)
[2024-01-01] MEDS ORDERED: Acetaminophen 325 MG TAB PO PRN (18:28)
[2024-01-01] MEDS ORDERED: Promethazine HCl 12.5 MG in Sodium Chloride 0.9% 50 ML IVPB PRN (18:31)
[2024-01-01] MEDS ORDERED: Electrolyte Replacement Protocol FS SCH (18:58)
[2024-01-01 20:06] LABS: Influenza A by NAA Not Detected (NotDetected); Influenza B by NAA Not Detected (NotDetected); SARS-CoV-2 NAA Rapid Test Not Detected (NotDetected)
[2024-01-01 20:13] VITALS: BMI 34.3
[2024-01-01] MEDS ORDERED: Ipratropium/Albuterol 3 ML NEB NEB PRN (20:47)
[2024-01-01] MEDS ORDERED: Vancomycin 1 GM in Premix 1 BAG IVPB SCH (21:00)
[2024-01-01 21:26] LABS: Troponin I Less than 0.010 ng/mL (< 0.028)
[2024-01-01] MEDS: Famotidine 20 MG TAB PO SCH (22:30)
[2024-01-01] MEDS: Apixaban 5 MG TAB PO SCH (22:30)
[2024-01-01] MEDS: Vancomycin (BATCH) 2 GM in Premix 1 BAG IVPB SCH (22:53)
[2024-01-01 23:08] LABS: Bacteria/HPF 2+ HPF (None Seen); Bilirubin Negative (Negative); Blood, Urine Negative (Negative); Clarity Clear (Clear); Glucose, Urine (Dipstick) Greater than 1000 mg/dL (Negative); Ketone, Urine Negative (Negative); Leukocyte 75 Leu/uL (Negative); Nitrite 1+ (Negative); Protein, Urine (Dipstick) Negative (Neg-Trace); RBC/HPF 0-3 HPF (0-3); Specific Gravity, Urine 1.016 (1.002-1.036); Squamous Epithelial 0-3 HPF (0-3); Urobilinogen Normal mg/dL (Less than 2); WBC/HPF 21-50 HPF (0-3); pH, Urine 5.5 (5.0-9.0)
[2024-01-01 23:15] LABS: Troponin I Less than 0.010 ng/mL (< 0.028)
[2024-01-01 23:18] LABS: Legionella Urinary Ag Negative (Negative)
[2024-01-02] MEDS: Ipratropium/Albuterol 3 ML NEB NEB SCH ×2 (01:11→19:00)
[2024-01-02] MEDS: Cefepime 1 GM in Sodium Chloride 0.9% 100 ML IVPB SCH (01:57)
[2024-01-02] MEDS: Furosemide 40 MG (4 mL) VIAL SLOW IVP SCH (05:19)
[2024-01-02] MEDS: Albumin 25% 25 GM (100 mL) BOT IVPB SCH (05:19)
[2024-01-02 06:51] LABS: #Basophils Less than 0.03 10x3/uL (0.0-0.2); #Eosinphils Less than 0.03 10x3/uL (0.0-0.7); %Basophils 0.1 % (0.0-1.0); %Monocytes 5.2 % (0.0-10.0); %Neutrophils 79.7 % (42.0-75.0); Hematocrit 31.4 % (36.0-47.0); Hemoglobin 9.3 g/dL (12.0-16.0); Mean Corpuscular HGB CONC 29.6 g/dL (32.0-36.0); Mean Corpuscular Hemoglobin 24.6 pg (27.0-31.0); Mean Corpuscular Volume 83.1 fL (78.0-98.0); Mean Platelet Volume 10.6 fL (7.4-10.4); Platelet Count 312 10x3/uL (130-400); RBC Distribution Width 17.3 % (11.5-14.5); Red Blood Cell (RBC) Count 3.78 mill/uL (4.20-5.40)
[2024-01-02] MEDS: Mometasone 100 MCG HFA INHALER (RT USE) INH SCH (06:56)
[2024-01-02 07:33] LABS: Vancomycin, Random 16.9 ug/mL (See Comment)
[2024-01-02 07:34] LABS: Anion Gap 17 mmol/L (10-20); BUN (Urea Nitrogen) 19 mg/dL (9.8-20.1); Calc. Creatinine Clearance 81 mL/min (70-130); Calcium 9.2 mg/dL (7.8-10.44); Carbon Dioxide 29 mmol/L (23-31); Chloride 98 mmol/L (98-107); Estimated GFR 55; Glucose 142 mg/dL (80-115); Potassium 3.4 mmol/L (3.5-5.1); Sodium 141 mmol/L (136-145)
[2024-01-02] MEDS ORDERED: Glucagon 1 MG/ML KIT IM PRN (08:14)
[2024-01-02] MEDS ORDERED: HumaLOG 300 UNITS/3 ML VIAL SC PRN (08:14)
[2024-01-02] MEDS ORDERED: Dextrose 5% in Water 1,000 ML IV PRN (08:14)
[2024-01-02] MEDS ORDERED: Dextrose 50% Abboject 50 ML SYRINGE SLOW IVP PRN (08:14)
[2024-01-02] MEDS ORDERED: Enoxaparin 40 MG (0.4 mL) SYRINGE SC SCH (09:00)
[2024-01-02] MEDS ORDERED: Pantoprazole 40 MG GRANULES PACKET PO SCH (09:00)
[2024-01-02] MEDS ORDERED: Gabapentin 100 MG CAP PO SCH (09:00)
[2024-01-02] MEDS: Potassium Chloride 20 MEQ TAB PO SCH ×2 (09:36→17:16)
[2024-01-02] MEDS: Pantoprazole DR 40 MG TAB PO SCH (09:36)
[2024-01-02] MEDS: Empagliflozin 10 MG TAB PO SCH (09:36)
[2024-01-02] MEDS: Metoprolol Tartrate 50 MG TAB PO SCH (09:37)
[2024-01-02] MEDS: Dronedarone HCl 400 MG TAB PO SCH (09:37)
[2024-01-02] MEDS: Gabapentin 300 MG CAP PO SCH (09:46)
[2024-01-02] MEDS: dilTIAZem 30 MG TAB PO SCH (13:43)
[2024-01-02] MEDS ORDERED: Vancomycin (BATCH) 1.5 GM in Premix 1 BAG IVPB SCH (15:00)
[2024-01-02] MEDS: DULoxetine 60 MG CAP PO SCH (20:24)
[2024-01-03 08:32] LABS: Base Excess (BEa) 6.2 mEq/L (-2.0 to +3.0); CO2 Tension 45.9 mmHg (35.0-45.0); Calcium, Ionized (arterial) 1.15 mmol/L (1.12-1.30); Carboxyhemoglobin (COHb) 0.5 gm% (0.0-3.0); Hematocrit-ABG 29 % (36.0-47.0); Hemoglobin (Hb) 9.8 g/dL (12.0-16.0); Potassium - ABG Lab 3.88 mmol/L (3.70-5.30); pH, Arterial 7.447 (7.35-7.45)
[2024-01-03 08:52] LABS: Puncture Site LRA
[2024-01-03 09:09] LABS: #Basophils 0.04 10x3/uL (0.0-0.2); %Basophils 0.3 % (0.0-1.0); %Lymphocytes 11.6 % (21.0-51.0); %Monocytes 8.9 % (0.0-10.0); %Neutrophils 76.6 % (42.0-75.0); Hematocrit 30.4 % (36.0-47.0); Hemoglobin 8.8 g/dL (12.0-16.0); Mean Corpuscular HGB CONC 28.9 g/dL (32.0-36.0); Mean Corpuscular Volume 82.8 fL (78.0-98.0); Mean Platelet Volume 11.7 fL (7.4-10.4); Platelet Count 345 10x3/uL (130-400); Red Blood Cell (RBC) Count 3.67 mill/uL (4.20-5.40)
[2024-01-03 09:15] LABS: Anion Gap 20 mmol/L (10-20); BUN (Urea Nitrogen) 18 mg/dL (9.8-20.1); Calc. Creatinine Clearance 75 mL/min (70-130); Calcium 9.4 mg/dL (7.8-10.44); Carbon Dioxide 28 mmol/L (23-31); Chloride 97 mmol/L (98-107); Estimated GFR 52; Glucose 204 mg/dL (80-115); Magnesium 1.9 mg/dL (1.6-2.6); Potassium 4.6 mmol/L (3.5-5.1); Sodium 140 mmol/L (136-145)
[2024-01-03 10:40] LABS: Microcytosis SLIGHT = 6-15 cells HPF (0-5); Platelet Adequacy Comment Platelets Normal; Polychromasia SLIGHT = 2-3 cells HPF (0-2)
[2024-01-03] MEDS: methylPREDNISolone Sod Succ/PF 125 MG/2 ML VIAL IVP SCH (12:28)
[2024-01-03] MEDS: Magnesium 2 GM/50 ML(in water) 2 GM in Premix 1 BAG IVPB SCH (14:09)
[2024-01-03] MEDS: Insulin Lispro 100 UNIT/ML 10 ML VIAL SC PRN ×2 (19:02→21:02)
[2024-01-04 04:46] LABS: #Basophils Less than 0.03 10x3/uL (0.0-0.2); #Eosinphils Less than 0.03 10x3/uL (0.0-0.7); %Basophils 0.1 % (0.0-1.0); %Lymphocytes 7.2 % (21.0-51.0); %Monocytes 2.5 % (0.0-10.0); %Neutrophils 89.4 % (42.0-75.0); Hematocrit 29.9 % (36.0-47.0); Hemoglobin 8.7 g/dL (12.0-16.0); Mean Corpuscular HGB CONC 29.1 g/dL (32.0-36.0); Mean Corpuscular Hemoglobin 23.8 pg (27.0-31.0); Mean Corpuscular Volume 81.7 fL (78.0-98.0); Mean Platelet Volume 11.3 fL (7.4-10.4); Platelet Count 345 10x3/uL (130-400); RBC Distribution Width 17.2 % (11.5-14.5); Red Blood Cell (RBC) Count 3.66 mill/uL (4.20-5.40)
[2024-01-04 05:13] LABS: Anion Gap 16 mmol/L (10-20); BUN (Urea Nitrogen) 25 mg/dL (9.8-20.1); Calc. Creatinine Clearance 70 mL/min (70-130); Calcium 9.6 mg/dL (7.8-10.44); Carbon Dioxide 28 mmol/L (23-31); Chloride 98 mmol/L (98-107); Estimated GFR 48; Glucose 219 mg/dL (80-115); Magnesium 2.2 mg/dL (1.6-2.6); Potassium 5.3 mmol/L (3.5-5.1); Sodium 137 mmol/L (136-145)
[2024-01-04] MEDS: dilTIAZem 30 MG TAB PO SCH (10:21)
[2024-01-04 21:09] LABS: Mycoplasma pneumoniae IgG AB 563 U/mL (0-99); Mycoplasma pneumoniae IgM AB Less than 770 U/mL (0-769)
[2024-01-05 06:43] LABS: ALT (SGPT) 8 U/L (8-55); AST (SGOT) 11 U/L (5-34); Albumin 3.2 g/dL (3.4-4.8); Alkaline Phosphatase 67 U/L (40-110); Anion Gap 18 mmol/L (10-20); BUN (Urea Nitrogen) 37 mg/dL (9.8-20.1); Bilirubin, Total 0.3 mg/dL (0.2-1.2); Calc. Creatinine Clearance 69 mL/min (70-130); Calcium 9.6 mg/dL (7.8-10.44); Carbon Dioxide 29 mmol/L (23-31); Chloride 97 mmol/L (98-107); Estimated GFR 46; Globulin 3.8 g/dL (2.4-3.5); Glucose 202 mg/dL (80-115); Magnesium 2.3 mg/dL (1.6-2.6); Potassium 4.6 mmol/L (3.5-5.1); Sodium 139 mmol/L (136-145)
[2024-01-05 07:21] LABS: #Basophils Less than 0.03 10x3/uL (0.0-0.2); #Eosinphils Less than 0.03 10x3/uL (0.0-0.7); %Basophils 0.1 % (0.0-1.0); %Lymphocytes 4.9 % (21.0-51.0); %Neutrophils 91.3 % (42.0-75.0); Hematocrit 30.5 % (36.0-47.0); Mean Corpuscular HGB CONC 29.5 g/dL (32.0-36.0); Mean Corpuscular Hemoglobin 23.9 pg (27.0-31.0); Mean Corpuscular Volume 81.1 fL (78.0-98.0); Platelet Count 350 10x3/uL (130-400); RBC Distribution Width 16.8 % (11.5-14.5); Red Blood Cell (RBC) Count 3.76 mill/uL (4.20-5.40)
[2024-01-05] MEDS: Insulin Glargine 30 UNITS/0.3 ML VIAL SC SCH ×2 (14:38→20:25)
[2024-01-05 17:10] VITALS: BP 117/68
[2024-01-06 05:02] LABS: #Basophils Less than 0.03 10x3/uL (0.0-0.2); #Eosinphils Less than 0.03 10x3/uL (0.0-0.7); %Basophils 0.1 % (0.0-1.0); %Lymphocytes 3.7 % (21.0-51.0); %Neutrophils 93.5 % (42.0-75.0); Mean Platelet Volume 11.3 fL (7.4-10.4); Platelet Count 369 10x3/uL (130-400); RBC Distribution Width 16.6 % (11.5-14.5); Red Blood Cell (RBC) Count 3.75 mill/uL (4.20-5.40)
[2024-01-06 05:46] LABS: ALT (SGPT) 9 U/L (8-55); AST (SGOT) 15 U/L (5-34); Albumin 3.2 g/dL (3.4-4.8); Alkaline Phosphatase 60 U/L (40-110); Anion Gap 17 mmol/L (10-20); BUN (Urea Nitrogen) 52 mg/dL (9.8-20.1); Bilirubin, Total 0.3 mg/dL (0.2-1.2); Calc. Creatinine Clearance 67 mL/min (70-130); Calcium 9.4 mg/dL (7.8-10.44); Carbon Dioxide 27 mmol/L (23-31); Chloride 98 mmol/L (98-107); Estimated GFR 45; Globulin 3.6 g/dL (2.4-3.5); Glucose 221 mg/dL (80-115); Protein, Total 6.8 g/dL (5.8-8.1); Sodium 137 mmol/L (136-145)
[2024-01-06 07:51] VITALS: TEMP 97.4
[2024-01-06] MEDS: Furosemide 40 MG TAB PO SCH (14:23)
[2024-01-06] MEDS ORDERED: Furosemide 40 MG TAB PO SCH (21:00)
[2024-01-07] MEDS ORDERED: predniSONE 20 MG TAB PO SCH (08:00)
[2024-01-08 15:07] LABS: O2 Tension (PaO2), arterial 41.3 mmHg (> 80.0)
== END 2024-01-06 15:45 | disposition home or self-care (01) | DRG 291 ==
LOC: ERS 10:16 → IMCU/EMU 18:10
PROVIDERS: ADMIT Internal Medicine; ATTEND Internal Medicine
PROC: 5A09457 Assistance with Respiratory Ventilation, 24-96 Consecutive Hours, Continuous Positive Airway Pressure (ICD-10-PCS; 2024-01-01)
PROC: 30233J1 Transfusion of Nonautologous Serum Albumin into Peripheral Vein, Percutaneous Approach (ICD-10-PCS; principal; 2024-01-02)
DX: I11.0 Hypertensive heart disease with heart failure (principal); A41.9 Sepsis, unspecified organism; J96.21 Acute and chronic respiratory failure with hypoxia; I50.33 Acute on chronic diastolic (congestive) heart failure; J18.9 Pneumonia, unspecified organism; J44.1 Chronic obstructive pulmonary disease with (acute) exacerbation; R65.10 Systemic inflammatory response syndrome (SIRS) of non-infectious origin without acute organ dysfunction; N17.9 Acute kidney failure, unspecified; E87.20 Acidosis, unspecified; N39.0 Urinary tract infection, site not specified; J44.0 Chronic obstructive pulmonary disease with (acute) lower respiratory infection; G47.33 Obstructive sleep apnea (adult) (pediatric); E11.9 Type 2 diabetes mellitus without complications; E66.01 Morbid (severe) obesity due to excess calories; I48.0 Paroxysmal atrial fibrillation; F32.A Depression, unspecified; R39.198 Other difficulties with micturition; K52.9 Noninfective gastroenteritis and colitis, unspecified; D64.9 Anemia, unspecified; E88.09 Other disorders of plasma-protein metabolism, not elsewhere classified; Z68.33 Body mass index [BMI] 33.0-33.9, adult; Z99.81 Dependence on supplemental oxygen; Z79.84 Long term (current) use of oral hypoglycemic drugs; Z79.51 Long term (current) use of inhaled steroids; Z79.01 Long term (current) use of anticoagulants; Z79.899 Other long term (current) drug therapy; Z90.49 Acquired absence of other specified parts of digestive tract; Z87.891 Personal history of nicotine dependence; A08.4 Viral intestinal infection, unspecified
CPT/HCPCS: 36415; 36416; 36600; 71045; 80048; 80053; 80202; 81003; 81015; 82805; 83605; 83735; 83880; 84145; 84484; 85025; 86141; 87040; 87081; 87086; 87149; 87899; 93005; 93010; 94660; 94760; 96365; 96366; 96367; 96375; J0692; J1815; J1940; J2930; J3370; J3475; J3490; J7620; P9047

== ENCOUNTER 2024-05-15 18:40 | Inpatient (IN) | payer MEDICARE ==
[2024-05-15 19:24] LABS: Actual Bicarbonate (HCO3a) 22.7 mEq/L (22-28); Analyzer IN Cardio ER; Base Excess (BEa) -5.4 mEq/L (-2.0 to +3.0); Carboxyhemoglobin (COHb) 4.2 gm% (0.0-3.0); Hematocrit-ABG 35 % (36.0-47.0); Potassium - ABG Lab 4.58 mmol/L (3.70-5.30); pH, Arterial 7.225 (7.35-7.45)
[2024-05-15 19:26] LABS: Puncture Site RR
[2024-05-15 19:27] LABS: Hematocrit 39.8 % (36.0-47.0); Hemoglobin 11.4 g/dL (12.0-16.0); Mean Corpuscular HGB CONC 28.6 g/dL (32.0-36.0); Mean Corpuscular Hemoglobin 23.1 pg (27.0-31.0); Mean Corpuscular Volume 80.7 fL (78.0-98.0); Mean Platelet Volume 10.5 fL (7.4-10.4); Platelet Count 270 10x3/uL (130-400); RBC Distribution Width 27.2 % (11.5-14.5); Red Blood Cell (RBC) Count 4.93 mill/uL (4.20-5.40)
[2024-05-15 19:50] LABS: ALT (SGPT) 10 U/L (8-55); AST (SGOT) 13 U/L (5-34); Albumin 3.3 g/dL (3.4-4.8); Alkaline Phosphatase 143 U/L (40-110); Anion Gap 15 mmol/L (10-20); BUN (Urea Nitrogen) 19 mg/dL (9.8-20.1); Bilirubin, Total 0.5 mg/dL (0.2-1.2); Calc. Creatinine Clearance 0 mL/min (70-130); Calcium 8.9 mg/dL (7.8-10.44); Carbon Dioxide 23 mmol/L (23-31); Chloride 108 mmol/L (98-107); Estimated GFR 34; Globulin 3.8 g/dL (2.4-3.5); Glucose 153 mg/dL (80-115); Potassium 5.5 mmol/L (3.5-5.1); Protein, Total 7.1 g/dL (5.8-8.1); Sodium 140 mmol/L (136-145)
[2024-05-15 19:51] LABS: Anisocytosis SLIGHT = 6-15 cells HPF (0-5); Band 2 % (5-11); Eosinophils 2 % (0-10); Lymphocytes 17 % (21-51); Macrocytosis SLIGHT = 6-15 cells HPF (0-5); Monocytes 5 % (0-10); Neutrophil 74 % (42-75); Nucleated RBC (Manual Ct) 1 % (0); Platelet Adequacy Comment Platelets Decreased; Polychromasia SLIGHT = 2-3 cells HPF (0-2); Stomatocytes SLIGHT = 2-5 cells HPF (0-1)
[2024-05-15 19:55] LABS: Troponin I Less than 0.010 ng/mL (< 0.028)
[2024-05-15] MEDS ORDERED: Furosemide 40 MG (4 mL) VIAL ONE ×2 (20:27→20:43)
[2024-05-15] MEDS ORDERED: Ipratropium/Albuterol 3 ML NEB NEB PRN (20:28)
[2024-05-15] MEDS ORDERED: Dextrose 5% in Water 1,000 ML IV PRN (20:31)
[2024-05-15] MEDS ORDERED: Dextrose 50% Abboject 50 ML SYRINGE SLOW IVP PRN (20:31)
[2024-05-15] MEDS ORDERED: Insulin Lispro 100 UNIT/ML 10 ML VIAL SC PRN ×2 (20:31)
[2024-05-15] MEDS ORDERED: Glucagon 1 MG/ML KIT IM PRN (20:31)
[2024-05-15] MEDS: Furosemide 40 MG (4 mL) VIAL SLOW IVP SCH (20:55)
[2024-05-15] MEDS ORDERED: Senokot S 8.6-50 MG TAB PO PRN (21:10)
[2024-05-15] MEDS ORDERED: Ondansetron PF 4 MG/2 ML Vial IVP PRN (21:10)
[2024-05-15] MEDS ORDERED: Calcium Carbonate 500 MG ChewTAB PO PRN (21:10)
[2024-05-15 21:27] VITALS: BP 122/61
[2024-05-15] MEDS ORDERED: Metoprolol Tartrate 50 MG TAB ONE (22:03)
[2024-05-15] MEDS ORDERED: DULoxetine 60 MG CAP ONE (22:04)
[2024-05-15] MEDS ORDERED: Apixaban 5 MG TAB ONE (22:04)
[2024-05-15] MEDS ORDERED: Gabapentin 300 MG CAP ONE (22:04)
[2024-05-15] MEDS: Gabapentin 300 MG CAP PO SCH (22:14)
[2024-05-15] MEDS: Apixaban 5 MG TAB PO SCH (22:14)
[2024-05-15] MEDS: DULoxetine 60 MG CAP PO SCH (22:14)
[2024-05-15] MEDS: Metoprolol Tartrate 50 MG TAB PO SCH (22:15)
[2024-05-15 22:57] VITALS: BMI 32.6
[2024-05-16 00:32] LABS: Troponin I Less than 0.010 ng/mL (< 0.028)
[2024-05-16 01:33] LABS: Troponin I Less than 0.010 ng/mL (< 0.028)
[2024-05-16 03:54] LABS: #Basophils 0.04 10x3/uL (0.0-0.2); %Basophils 0.4 % (0.0-1.0); %Eosinophils 1.8 % (0.0-10.0); %Lymphocytes 16.6 % (21.0-51.0); %Monocytes 9.2 % (0.0-10.0); %Neutrophils 70.8 % (42.0-75.0); Hematocrit 37.2 % (36.0-47.0); Hemoglobin 10.7 g/dL (12.0-16.0); Mean Corpuscular HGB CONC 28.8 g/dL (32.0-36.0); Mean Corpuscular Hemoglobin 23.1 pg (27.0-31.0); Mean Corpuscular Volume 80.2 fL (78.0-98.0); Platelet Count 214 10x3/uL (130-400); RBC Distribution Width 27.1 % (11.5-14.5); Red Blood Cell (RBC) Count 4.64 mill/uL (4.20-5.40)
[2024-05-16 04:14] LABS: ALT (SGPT) 8 U/L (8-55); AST (SGOT) 11 U/L (5-34); Alkaline Phosphatase 123 U/L (40-110); Anion Gap 16 mmol/L (10-20); BUN (Urea Nitrogen) 18 mg/dL (9.8-20.1); Bilirubin, Total 0.4 mg/dL (0.2-1.2); Calc. Creatinine Clearance 56 mL/min (70-130); Calcium 8.4 mg/dL (7.8-10.44); Carbon Dioxide 22 mmol/L (23-31); Chloride 107 mmol/L (98-107); Estimated GFR 37; Globulin 3.3 g/dL (2.4-3.5); Glucose 90 mg/dL (80-115); Potassium 4.2 mmol/L (3.5-5.1); Protein, Total 6.3 g/dL (5.8-8.1); Sodium 141 mmol/L (136-145)
[2024-05-16 05:20] LABS: Anisocytosis SLIGHT = 6-15 cells HPF (0-5); Hypochromia SLIGHT = 6-15 cells HPF (0-5); Microcytosis SLIGHT = 6-15 cells HPF (0-5); Platelet Adequacy Comment Platelets Normal; Polychromasia SLIGHT = 2-3 cells HPF (0-2)
[2024-05-16] MEDS: Dronedarone HCl 400 MG TAB PO SCH (09:33)
[2024-05-16] MEDS: Empagliflozin 10 MG TAB PO SCH (09:33)
[2024-05-16] MEDS: Spironolactone 100 MG TAB PO SCH (09:39)
[2024-05-16] MEDS: dilTIAZem CD 180 MG CAP PO SCH (09:39)
[2024-05-16 11:24] LABS: Actual Bicarbonate (HCO3v) 25.3 mEq/L (22-28); Base Excess -0.2 mEq/L (-2.0 to +3.0); Calcium, Ionized (venous) 1.02 mmol/L (1.16-1.32); Chloride (VBG) 106 mmol/L (98-106); Hematocrit-VBG 35 % (36.0-47.0); Potassium (VBG) 4.14 mmol/L (3.70-5.30); Sodium 139 mmol/L (133-146); pH (venous) 7.368 (7.32-7.43)
[2024-05-16] MEDS: Torsemide 20 MG TAB PO SCH (12:35)
[2024-05-16] MEDS: Ipratropium/Albuterol 3 ML NEB NEB SCH (15:34)
[2024-05-16] MEDS: Mometasone 100 MCG HFA INHALER (RT USE) INH SCH (19:00)
[2024-05-16] MEDS: Acetaminophen 325 MG TAB PO PRN (20:31)
[2024-05-17 05:06] LABS: Albumin 2.7 g/dL (3.4-4.8); Anion Gap 15 mmol/L (10-20); BUN (Urea Nitrogen) 15 mg/dL (9.8-20.1); BUN/Creatinine Ratio 12.82; Calc. Creatinine Clearance 74 mL/min (70-130); Calcium 8.3 mg/dL (7.8-10.44); Carbon Dioxide 20 mmol/L (23-31); Chloride 107 mmol/L (98-107); Estimated GFR 52; Glucose 85 mg/dL (80-115); Phosphorus 3.7 mg/dL (2.3-4.7); Sodium 138 mmol/L (136-145)
[2024-05-17] MEDS: Torsemide 20 MG TAB PO SCH (09:50)
[2024-05-17] MEDS: Sodium Bicarbonate Tab 325 MG TAB PO SCH (20:22)
[2024-05-17] MEDS: traMADol HCl 50 MG TAB PO PRN (21:55)
[2024-05-18 04:11] VITALS: TEMP 97.7
[2024-05-18 04:35] LABS: #Basophils Less than 0.03 10x3/uL (0.0-0.2); %Basophils 0.1 % (0.0-1.0); %Eosinophils 2.5 % (0.0-10.0); %Lymphocytes 18.8 % (21.0-51.0); %Monocytes 9.9 % (0.0-10.0); Hematocrit 39.5 % (36.0-47.0); Hemoglobin 11.2 g/dL (12.0-16.0); Mean Corpuscular HGB CONC 28.4 g/dL (32.0-36.0); Mean Corpuscular Hemoglobin 22.7 pg (27.0-31.0); Mean Corpuscular Volume 80.1 fL (78.0-98.0); Platelet Count 195 10x3/uL (130-400); RBC Distribution Width 26.8 % (11.5-14.5); Red Blood Cell (RBC) Count 4.93 mill/uL (4.20-5.40)
[2024-05-18 05:12] LABS: Anion Gap 14 mmol/L (10-20); BUN (Urea Nitrogen) 16 mg/dL (9.8-20.1); Calc. Creatinine Clearance 97 mL/min (70-130); Calcium 8.4 mg/dL (7.8-10.44); Carbon Dioxide 25 mmol/L (23-31); Chloride 105 mmol/L (98-107); Estimated GFR 73; Glucose 97 mg/dL (80-115); Potassium 3.6 mmol/L (3.5-5.1); Sodium 140 mmol/L (136-145)
[2024-05-18] MEDS: cefTRIAXone\\ROCEPHIN 1 GM in Sodium Chloride 0.9% 100 ML IVPB SCH (10:12)
[2024-05-21 09:43] LABS: O2 Tension (PaO2), arterial 57.7 mmHg (> 80.0)
== END 2024-05-18 18:47 | disposition home or self-care (01) | DRG 291 ==
LOC: SUATTDRO 18:40 → ERS 18:40 → ERHOLD 20:28 → IMCU/EMU 22:36
PROVIDERS: ADMIT Internal Medicine; ATTEND Internal Medicine
PROC: 4A133R1 Monitoring of Arterial Saturation, Peripheral, Percutaneous Approach (ICD-10-PCS; principal; 2024-05-15)
PROC: 5A09357 Assistance with Respiratory Ventilation, Less than 24 Consecutive Hours, Continuous Positive Airway Pressure (ICD-10-PCS; 2024-05-15)
PROC: 5A0935A Assistance with Respiratory Ventilation, Less than 24 Consecutive Hours, High Flow/Velocity Cannula (ICD-10-PCS; 2024-05-16)
DX: I13.0 Hypertensive heart and chronic kidney disease with heart failure and stage 1 through stage 4 chronic kidney disease, or unspecified chronic kidney disease (principal); I50.33 Acute on chronic diastolic (congestive) heart failure; J96.21 Acute and chronic respiratory failure with hypoxia; J96.22 Acute and chronic respiratory failure with hypercapnia; J96.10 Chronic respiratory failure, unspecified whether with hypoxia or hypercapnia; N17.9 Acute kidney failure, unspecified; J44.9 Chronic obstructive pulmonary disease, unspecified; N18.9 Chronic kidney disease, unspecified; I48.91 Unspecified atrial fibrillation; E11.22 Type 2 diabetes mellitus with diabetic chronic kidney disease; E66.9 Obesity, unspecified; Z68.32 Body mass index [BMI] 32.0-32.9, adult; N18.30 Chronic kidney disease, stage 3 unspecified; Z99.81 Dependence on supplemental oxygen; E87.5 Hyperkalemia; D63.1 Anemia in chronic kidney disease
CPT/HCPCS: 36415; 36416; 70450; 71045; 80048; 80053; 80069; 82805; 83735; 83880; 84145; 84484; 85025; 93005; 94640; 94660; 94760; 96374; J0696; J1940; J7620

== ENCOUNTER 2024-06-27 08:23 | Outpatient (CLI) | payer MEDICARE | END 2024-06-27 08:24 | disposition home or self-care (01) | LOC: RAD 08:23 | PROVIDERS: ATTEND Internal Medicine Critical Care Medicine | DX: R06.00 Dyspnea, unspecified (principal); I51.7 Cardiomegaly; R09.89 Other specified symptoms and signs involving the circulatory and respiratory systems | CPT/HCPCS: 71046 ==

== ENCOUNTER 2024-08-13 12:00 | Inpatient (IN) | payer OTHER ==
[2024-08-13 12:24] VITALS: BMI 33.4
[2024-08-13 13:50] LABS: #Basophils 0.09 10x3/uL (0.0-0.2); %Basophils 0.6 % (0.0-1.0); %Eosinophils 1.6 % (0.0-10.0); %Lymphocytes 14.1 % (21.0-51.0); %Monocytes 2.5 % (0.0-10.0); %Neutrophils 79.8 % (42.0-75.0); Hematocrit 41.7 % (36.0-47.0); Hemoglobin 13.1 g/dL (12.0-16.0); Mean Corpuscular HGB CONC 31.4 g/dL (32.0-36.0); Mean Corpuscular Hemoglobin 28.1 pg (27.0-31.0); Mean Corpuscular Volume 89.5 fL (78.0-98.0); Mean Platelet Volume 11.8 fL (7.4-10.4); Platelet Count 291 10x3/uL (130-400); RBC Distribution Width 17.6 % (11.5-14.5); Red Blood Cell (RBC) Count 4.66 mill/uL (4.20-5.40)
[2024-08-13 14:05] LABS: INR-International Normal Ratio 1.1; PTT 29.8 sec (22.9-36.1)
[2024-08-13 14:11] LABS: ALT (SGPT) 9 U/L (Less than 34); AST (SGOT) 13 U/L (11-34); Albumin 3.9 g/dL (3.1-4.5); Alkaline Phosphatase 73 U/L (40-110); Anion Gap 17 mmol/L (10-20); BUN (Urea Nitrogen) 29 mg/dL (9.8-20.1); Bilirubin, Total 0.2 mg/dL (0.3-1.2); Calc. Creatinine Clearance 0 mL/min (70-130); Calcium 9.5 mg/dL (7.8-10.44); Carbon Dioxide 22 mmol/L (23-31); Chloride 103 mmol/L (98-107); Estimated GFR 51; Globulin 3.6 g/dL (2.4-3.5); Glucose 176 mg/dL (80-115); Potassium 4.7 mmol/L (3.5-5.1); Protein, Total 7.5 g/dL (5.8-8.1); Sodium 137 mmol/L (136-145)
[2024-08-19] MEDS ORDERED: Iopamidol 370 76% 100 ML VIAL ONE (10:16)
[2024-08-19] MEDS ORDERED: Heparin 10,000 UNITS/ 10 ML VIAL ONE (10:43)
[2024-08-19] MEDS ORDERED: CEFAZOLIN 2 GM VIAL ONE (10:43)
[2024-08-19] MEDS ORDERED: Protamine Sulfate 50 MG/5 ML VIAL ONE ×2 (10:43→13:20)
[2024-08-19] MEDS ORDERED: Ipratropium/Albuterol 3 ML NEB ONE (10:51)
[2024-08-19] MEDS ORDERED: fentaNYL 50 mcg/mL 1 mL Vial ONE (11:59)
[2024-08-19] MEDS ORDERED: KETAMINE 100 MG/ML (5ML VIAL) ONE (11:59)
[2024-08-19] MEDS ORDERED: PROPOFOL 200 MG/20 ML VIAL ONE (12:25)
[2024-08-19] MEDS ORDERED: Rocuronium Bromide 10 MG/ML (10ML VIAL) ONE (12:25)
[2024-08-19] MEDS ORDERED: Dexamethasone 20 MG/5 ML VIAL ONE (12:25)
[2024-08-19] MEDS ORDERED: Ondansetron PF 4 MG/2 ML Vial ONE (12:29)
[2024-08-19] MEDS ORDERED: SUGAMMADEX SODIUM 200 MG/2 ML VIAL ONE (12:29)
== END 2024-08-19 18:02 | disposition home or self-care (01) | DRG 274 ==
LOC: SURG A 08-19 08:42
PROVIDERS: ADMIT Internal Medicine Cardiovascular Disease; ATTEND Internal Medicine Cardiovascular Disease
PROC: 02L73DK Occlusion of Left Atrial Appendage with Intraluminal Device, Percutaneous Approach (ICD-10-PCS; principal; 2024-08-19)
PROC: B245ZZ4 Ultrasonography of Left Heart, Transesophageal (ICD-10-PCS; 2024-08-19)
DX: I48.0 Paroxysmal atrial fibrillation (principal); Z00.6 Encounter for examination for normal comparison and control in clinical research program; I31.39 Other pericardial effusion (noninflammatory); G47.33 Obstructive sleep apnea (adult) (pediatric); Z92.3 Personal history of irradiation; Z92.21 Personal history of antineoplastic chemotherapy; R55 Syncope and collapse; E66.9 Obesity, unspecified; Z71.82 Exercise counseling; Z79.899 Other long term (current) drug therapy; Z87.891 Personal history of nicotine dependence; Z98.890 Other specified postprocedural states; Z91.81 History of falling; Z68.33 Body mass index [BMI] 33.0-33.9, adult
CPT/HCPCS: 33340; 80053; 85025; 85347; 85610; 85730; 86850; 86900; 86901; 93306; 93312; C1759; C1760; C1889; C1894; J1100; J1644; J2405; J2704; J2720; J3010; J7620; Q9967

== ENCOUNTER 2025-06-15 16:35 | Inpatient (IN) | payer OTHER ==
[2025-06-15] MEDS ORDERED: Albuterol 2.5 MG (0.5 mL) NEB ONE (16:47)
[2025-06-15] MEDS ORDERED: Albuterol 2.5 MG (3 mL) NEB ONE (16:48)
[2025-06-15 16:56] LABS: Actual Bicarbonate (HCO3v) 27.4 mEq/L (22-28); Analyzer IN Cardio ER; Base Excess -0.8 mEq/L (-2.0 to +3.0); Calcium, Ionized (venous) 1.09 mmol/L (1.16-1.32); Chloride (VBG) 103 mmol/L (98-106); Hematocrit-VBG 41 % (36.0-47.0); Hemoglobin (Hb) 13.9 g/dL (11.7-16.1); Potassium (VBG) 5.44 mmol/L (3.70-5.30); Sodium 138 mmol/L (133-146)
[2025-06-15] MEDS ORDERED: diphenhydrAMINE 50 MG/ML VIAL ONE (17:09)
[2025-06-15 17:12] LABS: #Basophils 0.08 10x3/uL (0.0-0.2); #Eosinophils 0.10 10x3/uL (0.0-0.7); #Monocytes 0.21 10x3/uL (0.11-0.59); #Neutrophils 12.24 10x3/uL (1.40-6.50); %Basophils 0.6 % (0.0-1.0); %Eosinophils 0.7 % (0.0-10.0); %Lymphocytes 6.3 % (21.0-51.0); %Monocytes 1.5 % (0.0-10.0); %Neutrophils 89.2 % (42.0-75.0); Hematocrit 42.6 % (36.0-47.0); Hemoglobin 12.3 g/dL (12.0-16.0); Mean Corpuscular Hemoglobin 24.5 pg (27.0-31.0); Mean Corpuscular Volume 84.7 fL (78.0-98.0); Platelet Count 309 10x3/uL (130-400); Red Blood Cell (RBC) Count 5.03 mill/uL (4.20-5.40); White Blood Cell (WBC) Count 13.73 10x3/uL (4.8-10.8)
[2025-06-15 17:29] LABS: ALT (SGPT) 9 U/L (Less than 34); AST (SGOT) 11 U/L (11-34); Albumin 3.5 g/dL (3.1-4.5); Alkaline Phosphatase 124 U/L (40-110); Anion Gap 18 mmol/L (10-20); BUN (Urea Nitrogen) 16 mg/dL (9.8-20.1); Bilirubin, Total 0.3 mg/dL (0.3-1.2); Calc. Creatinine Clearance 0 mL/min (70-130); Calcium 8.7 mg/dL (7.8-10.44); Carbon Dioxide 24 mmol/L (23-31); Chloride 103 mmol/L (98-107); Globulin 3.3 g/dL (2.4-3.5); Glucose 172 mg/dL (80-115); Potassium 5.8 mmol/L (3.5-5.1); Sodium 139 mmol/L (136-145)
[2025-06-15] MEDS ORDERED: Ondansetron PF 4 MG/2 ML Vial IVP PRN (18:42)
[2025-06-15] MEDS ORDERED: Acetaminophen 325 MG TAB PO PRN (18:42)
[2025-06-15 21:06] VITALS: BP 146/69
[2025-06-15] MEDS: Aspirin 81 mg Enteric Coated Tablet PO SCH (21:07)
[2025-06-15] MEDS: Furosemide 40 MG (4 mL) VIAL SLOW IVP SCH (21:07)
[2025-06-15 21:17] LABS: Actual Bicarbonate (HCO3a) 22.7 mEq/L (22-28); Base Excess (BEa) -4.1 mEq/L (-2.0 to +3.0); CO2 Tension 48.2 mmHg (35.0-45.0); Calcium, Ionized (arterial) 1.15 mmol/L (1.12-1.30); Hematocrit-ABG 38 % (36.0-47.0); Hemoglobin (Hb) 12.8 g/dL (12.0-16.0); Potassium - ABG Lab 4.86 mmol/L (3.70-5.30); pH, Arterial 7.290 (7.35-7.45)
[2025-06-15 21:18] LABS: O2 Tension (PaO2), arterial 43.3 mmHg (> 80.0)
[2025-06-15] MEDS ORDERED: Glucagon 1 MG/ML KIT IM PRN (23:01)
[2025-06-15] MEDS: Dextrose 50% Abboject 50 ML SYRINGE SLOW IVP SCH (23:54)
[2025-06-15 23:56] LABS: Vancomycin, Random 20.6 ug/mL (See Comment)
[2025-06-16 04:46] LABS: #Basophils 0.03 10x3/uL (0.0-0.2); #Eosinophils Less than 0.03 10x3/uL (0.0-0.7); #Monocytes 0.39 10x3/uL (0.11-0.59); #Neutrophils 9.90 10x3/uL (1.40-6.50); %Basophils 0.3 % (0.0-1.0); %Eosinophils 0.0 % (0.0-10.0); %Lymphocytes 6.9 % (21.0-51.0); %Monocytes 3.5 % (0.0-10.0); %Neutrophils 87.7 % (42.0-75.0); Hematocrit 39.3 % (36.0-47.0); Hemoglobin 11.5 g/dL (12.0-16.0); Mean Corpuscular Hemoglobin 24.5 pg (27.0-31.0); Mean Corpuscular Volume 83.6 fL (78.0-98.0); Platelet Count 302 10x3/uL (130-400); Red Blood Cell (RBC) Count 4.70 mill/uL (4.20-5.40); White Blood Cell (WBC) Count 11.28 10x3/uL (4.8-10.8)
[2025-06-16 04:58] LABS: Anion Gap 15 mmol/L (10-20); BUN (Urea Nitrogen) 17 mg/dL (9.8-20.1); Calc. Creatinine Clearance 83 mL/min (70-130); Calcium 8.7 mg/dL (7.8-10.44); Carbon Dioxide 29 mmol/L (23-31); Chloride 101 mmol/L (98-107); Glucose 153 mg/dL (80-115); Potassium 4.7 mmol/L (3.5-5.1); Sodium 140 mmol/L (136-145)
[2025-06-16] MEDS: Furosemide 40 MG (4 mL) VIAL SLOW IVP SCH (05:59)
[2025-06-16] MEDS ORDERED: predniSONE 20 MG TAB PO SCH (08:00)
[2025-06-16] MEDS: Enoxaparin 40 MG (0.4 mL) SYRINGE SC SCH (10:01)
[2025-06-16] MEDS: Pantoprazole 40 MG DR.TAB PO SCH (10:02)
[2025-06-16] MEDS: Vancomycin 1.5 GM / NS 500ML VIAL-2-BAG IVPB SCH (14:09)
[2025-06-17 05:02] LABS: #Basophils Less than 0.03 10x3/uL (0.0-0.2); #Eosinophils Less than 0.03 10x3/uL (0.0-0.7); #Monocytes 0.30 10x3/uL (0.11-0.59); #Neutrophils 12.37 10x3/uL (1.40-6.50); %Basophils 0.1 % (0.0-1.0); %Eosinophils 0.0 % (0.0-10.0); %Lymphocytes 5.5 % (21.0-51.0); %Monocytes 2.2 % (0.0-10.0); %Neutrophils 91.5 % (42.0-75.0); Hematocrit 38.9 % (36.0-47.0); Hemoglobin 11.7 g/dL (12.0-16.0); Mean Corpuscular Hemoglobin 24.7 pg (27.0-31.0); Mean Corpuscular Volume 82.1 fL (78.0-98.0); Platelet Count 294 10x3/uL (130-400); Red Blood Cell (RBC) Count 4.74 mill/uL (4.20-5.40); White Blood Cell (WBC) Count 13.52 10x3/uL (4.8-10.8)
[2025-06-17 05:09] LABS: Anion Gap 15 mmol/L (10-20); BUN (Urea Nitrogen) 21 mg/dL (9.8-20.1); Calc. Creatinine Clearance 78 mL/min (70-130); Calcium 8.6 mg/dL (7.8-10.44); Carbon Dioxide 30 mmol/L (23-31); Chloride 98 mmol/L (98-107); Glucose 180 mg/dL (80-115); Magnesium 2.0 mg/dL (1.6-2.6); Potassium 4.6 mmol/L (3.5-5.1); Sodium 138 mmol/L (136-145)
[2025-06-18 04:50] VITALS: BMI 34.0
[2025-06-18 05:48] LABS: Vancomycin, Random 18.0 ug/mL (See Comment)
[2025-06-18 05:50] LABS: Anion Gap 14 mmol/L (10-20); BUN (Urea Nitrogen) 32 mg/dL (9.8-20.1); Calc. Creatinine Clearance 75 mL/min (70-130); Calcium 8.8 mg/dL (7.8-10.44); Carbon Dioxide 28 mmol/L (23-31); Chloride 98 mmol/L (98-107); Glucose 213 mg/dL (80-115); Magnesium 2.1 mg/dL (1.6-2.6); Potassium 4.5 mmol/L (3.5-5.1); Sodium 135 mmol/L (136-145)
[2025-06-18 10:38] VITALS: TEMP 97.7
[2025-06-18] MEDS: Albumin 25% 25 GM (100 mL) BOT IVPB SCH (11:34)
[2025-06-19] MEDS ORDERED: predniSONE 20 MG TAB PO SCH (08:00)
== END 2025-06-18 15:10 | disposition home or self-care (01) | DRG 871 ==
LOC: ERS 16:35 → PCU 17:59 → IMCU/EMU 22:51
PROVIDERS: ADMIT Student in an Organized Health Care Education/Training Program; ATTEND Internal Medicine
PROC: 5A09357 Assistance with Respiratory Ventilation, Less than 24 Consecutive Hours, Continuous Positive Airway Pressure (ICD-10-PCS; principal; 2025-06-15)
PROC: 5A0945A Assistance with Respiratory Ventilation, 24-96 Consecutive Hours, High Flow/Velocity Cannula (ICD-10-PCS; 2025-06-15)
PROC: 4A033R1 Measurement of Arterial Saturation, Peripheral, Percutaneous Approach (ICD-10-PCS; 2025-06-15)
PROC: 3E03329 Introduction of Other Anti-infective into Peripheral Vein, Percutaneous Approach (ICD-10-PCS; 2025-06-16)
PROC: 30233J1 Transfusion of Nonautologous Serum Albumin into Peripheral Vein, Percutaneous Approach (ICD-10-PCS; 2025-06-18)
DX: A41.9 Sepsis, unspecified organism (principal); I50.33 Acute on chronic diastolic (congestive) heart failure; J18.9 Pneumonia, unspecified organism; J96.22 Acute and chronic respiratory failure with hypercapnia; J96.21 Acute and chronic respiratory failure with hypoxia; N39.0 Urinary tract infection, site not specified; E87.29 Other acidosis; J44.1 Chronic obstructive pulmonary disease with (acute) exacerbation; C25.9 Malignant neoplasm of pancreas, unspecified; J44.0 Chronic obstructive pulmonary disease with (acute) lower respiratory infection; I11.0 Hypertensive heart disease with heart failure; E78.5 Hyperlipidemia, unspecified; E11.65 Type 2 diabetes mellitus with hyperglycemia; G47.33 Obstructive sleep apnea (adult) (pediatric); F41.9 Anxiety disorder, unspecified; F32.A Depression, unspecified; G47.00 Insomnia, unspecified; Z95.818 Presence of other cardiac implants and grafts; E87.5 Hyperkalemia; K21.9 Gastro-esophageal reflux disease without esophagitis; Z90.49 Acquired absence of other specified parts of digestive tract; Z90.710 Acquired absence of both cervix and uterus; Z98.890 Other specified postprocedural states; I48.0 Paroxysmal atrial fibrillation; Z87.891 Personal history of nicotine dependence; Z79.899 Other long term (current) drug therapy; Z79.82 Long term (current) use of aspirin; Z85.07 Personal history of malignant neoplasm of pancreas; Z92.3 Personal history of irradiation; Z92.21 Personal history of antineoplastic chemotherapy; Z91.199 Patient's noncompliance with other medical treatment and regimen due to unspecified reason; Z99.89 Dependence on other enabling machines and devices; Z86.14 Personal history of Methicillin resistant Staphylococcus aureus infection; Z99.81 Dependence on supplemental oxygen
CPT/HCPCS: 36415; 36416; 71045; 80048; 80202; 82805; 83036; 83605; 83735; 83880; 85025; 87081; 87428; 93005; 94640; 94660; 94760; 96374; J0692; J1200; J1650; J1815; J1940; J2919; J7030; J7611; J7626; J7999; P9047